=== PATIENT | female | born 1935 | race Caucasian/White ===

== ENCOUNTER 2017-10-15 09:18 | Observation (INO) | payer OTHER ==
[2017-10-15] MEDS: NITROGLYCERIN 2% 1 GM OINT PKT TD (10:11)
[2017-10-15] MEDS: ASPIRIN 81 MG TAB PO (10:11)
[2017-10-15 10:13] LABS: ADD MAN DIFF? NO
[2017-10-15 10:15] LABS: WHITE BLOOD COUNT 7.1 10^3/ul (4.8-10.8)
[2017-10-15 10:15] LABS: BASOPHIL # 0.1 10^3/ul (0.0-0.1); BASOPHILS % 1.4 % (0.0-2.0); EOSINOPHILS # 0.4 10^3/ul (0.0-0.5); EOSINOPHILS % 5.5 % (0.0-7.0); HEMATOCRIT 31.2 % (37.0-47.0); HEMOGLOBIN 9.6 g/dl (12.0-16.0); LYMPHOCYTES # 1.4 10^3/ul (0.8-2.9); LYMPHOCYTES % 19.4 % (15.0-51.0); MEAN CORPUSCULAR HGB CONC 30.8 g/dl (32.0-37.0); MEAN CORPUSCULAR VOLUME 87.6 fl (82.0-101.0); MONOCYTE # 0.6 10^3/ul (0.3-0.9); MONOCYTES % 8.8 % (0.0-11.0); NEUTROPHIL # 4.6 10^3/ul (1.6-7.5); NEUTROPHILS % 64.8 % (39.0-77.0); PLATELET COUNT 340 10^3/UL (140-415); RED BLOOD COUNT 3.56 10^6/ul (4.20-5.40); RED CELL DISTRIBUTION WIDTH 17.6 % (11.5-14.5)
[2017-10-15] MEDS ORDERED: NITROGLYCERIN (SL) 0.4 MG TAB SL (10:30)
[2017-10-15 10:34] LABS: ALANINE AMINOTRANSFERASE 8 IU/L (13-69); ALBUMIN 4.5 g/dl (3.3-4.9); ALBUMIN/GLOBULIN RATIO 1.21; ALKALINE PHOSPHATASE 69 IU/L (42-121); ANION GAP 13 (8-16); ASPARTATE AMINO TRANSFERASE 21 IU/L (15-46); BILIRUBIN,INDIRECT 0.4 mg/dl (0-1.1); BILIRUBIN,TOTAL 0.4 mg/dl (0.2-1.3); BLOOD UREA NITROGEN 19 mg/dl (7-20); CALCIUM 9.8 mg/dl (8.4-10.2); CARBON DIOXIDE 25 mmol/L (21-31); CHLORIDE 107 mmol/L (97-110); GLUCOSE 100 mg/dl (70-220); LIPASE 147 U/L (23-300); SODIUM 141 mmol/L (135-144); TOTAL PROTEIN 8.2 g/dl (6.1-8.1)
[2017-10-15 10:45] LABS: TROPONIN-I < 0.010 ng/ml (0.000-0.120)
[2017-10-15] MEDS ORDERED: ACETAMINOPHEN 325 MG TAB PO (13:00)
[2017-10-15] MEDS ORDERED: ONDANSETRON 4 MG INJ IV (13:00)
[2017-10-15] MEDS: POTASSIUM CHLORIDE (SR) 10 MEQ TAB PO (15:41)
[2017-10-15] MEDS: LOSARTAN 50 MG TAB PO (15:41)
[2017-10-15 16:33] LABS: CREATINE KINASE 75 IU/L (23-200)
[2017-10-15 16:45] LABS: CK INDEX 1.3; CK-MB 0.95 ng/ml (0.0-2.4); TROPONIN-I < 0.010 ng/ml (0.000-0.120)
[2017-10-15] MEDS: PANTOPRAZOLE (EC) 40 MG TAB PO (17:22)
[2017-10-15] MEDS: CILOSTAZOL 100 MG TAB PO (17:23)
[2017-10-15] MEDS: CREON (12k-38k-60k) 1 CAP PO (17:24)
[2017-10-15] MEDS: CLOPIDOGREL 75 MG TAB PO (18:49)
[2017-10-15] MEDS: FERROUS GLUCONATE (EC) 325 MG TAB PO (20:33)
[2017-10-15] MEDS: CARBIDOPA/LEVODOPA (25/100) TAB PO (20:33)
[2017-10-15] MEDS: NORTRIPTYLINE 25 MG CAP PO (20:33)
[2017-10-15] MEDS: ACETAMINOPHEN 500 MG TAB PO (20:33)
[2017-10-15] MEDS: ZOLPIDEM 5 MG TAB PO (21:09)
[2017-10-15 22:40] LABS: CREATINE KINASE 59 IU/L (23-200)
[2017-10-15 22:52] LABS: CK INDEX 1.4; CK-MB 0.81 ng/ml (0.0-2.4); TROPONIN-I < 0.010 ng/ml (0.000-0.120)
[2017-10-16] MEDS: LEVOTHYROXINE 75 MCG TAB PO (05:20)
[2017-10-16] MEDS: PANTOPRAZOLE 40 MG INJ IV ×2 (05:20→10:55)
[2017-10-16 06:08] LABS: ADD MAN DIFF? NO
[2017-10-16 06:15] LABS: BASOPHIL # 0.1 10^3/ul (0.0-0.1); BASOPHILS % 1.2 % (0.0-2.0); EOSINOPHILS # 0.5 10^3/ul (0.0-0.5); EOSINOPHILS % 7.6 % (0.0-7.0); HEMATOCRIT 28.5 % (37.0-47.0); HEMOGLOBIN 8.8 g/dl (12.0-16.0); LYMPHOCYTES # 1.3 10^3/ul (0.8-2.9); LYMPHOCYTES % 21.7 % (15.0-51.0); MEAN CORPUSCULAR HEMOGLOBIN 27.2 pg (29.0-33.0); MEAN CORPUSCULAR HGB CONC 30.9 g/dl (32.0-37.0); MEAN CORPUSCULAR VOLUME 88.2 fl (82.0-101.0); MEAN PLATELET VOLUME 9.6 fl (7.4-10.4); MONOCYTE # 0.5 10^3/ul (0.3-0.9); NEUTROPHIL # 3.6 10^3/ul (1.6-7.5); NEUTROPHILS % 60.2 % (39.0-77.0); PLATELET COUNT 292 10^3/UL (140-415); RED BLOOD COUNT 3.23 10^6/ul (4.20-5.40); RED CELL DISTRIBUTION WIDTH 17.2 % (11.5-14.5)
[2017-10-16 06:15] LABS: WHITE BLOOD COUNT 5.9 10^3/ul (4.8-10.8)
[2017-10-16 06:47] LABS: ALANINE AMINOTRANSFERASE 13 IU/L (13-69); ALBUMIN 3.5 g/dl (3.3-4.9); ALBUMIN/GLOBULIN RATIO 1.16; ALKALINE PHOSPHATASE 52 IU/L (42-121); ANION GAP 8 (8-16); ASPARTATE AMINO TRANSFERASE 19 IU/L (15-46); BILIRUBIN,INDIRECT 0.4 mg/dl (0-1.1); BILIRUBIN,TOTAL 0.4 mg/dl (0.2-1.3); BLOOD UREA NITROGEN 22 mg/dl (7-20); CALCIUM 8.8 mg/dl (8.4-10.2); CARBON DIOXIDE 28 mmol/L (21-31); CHLORIDE 110 mmol/L (97-110); CREATINE KINASE 54 IU/L (23-200); CREATININE 1.03 mg/dl (0.44-1.00); GLUCOSE 89 mg/dl (70-220); MAGNESIUM 1.9 mg/dl (1.7-2.5); POTASSIUM 3.8 mmol/L (3.5-5.1); SODIUM 142 mmol/L (135-144); TOTAL PROTEIN 6.5 g/dl (6.1-8.1)
[2017-10-16 06:59] LABS: CK INDEX 1.6; CK-MB 0.85 ng/ml (0.0-2.4); TROPONIN-I 0.011 ng/ml (0.000-0.120)
[2017-10-16 07:01] LABS: FREE T4 (FREE THYROXINE) 1.26 ng/dl (0.85-1.93)
[2017-10-16 07:16] LABS: THYROID STIMULATING HORMONE 0.996 MIU/L (0.465-4.680)
[2017-10-16] MEDS: CREON (12k-38k-60k) 1 CAP PO ×3 (07:55→17:55)
[2017-10-16] MEDS: CLOPIDOGREL 75 MG TAB PO (08:22)
[2017-10-16] MEDS: FERROUS GLUCONATE (EC) 325 MG TAB PO ×2 (08:22→20:40)
[2017-10-16] MEDS: LOSARTAN 50 MG TAB PO (08:22)
[2017-10-16] MEDS: CARBIDOPA/LEVODOPA (25/100) TAB PO ×3 (08:22→20:41)
[2017-10-16] MEDS: POTASSIUM CHLORIDE (SR) 10 MEQ TAB PO (08:22)
[2017-10-16] MEDS ORDERED: FERROUS SULFATE (EC) 325 MG TAB PO (09:00)
[2017-10-16] MEDS: PROPOFOL 20 ML (18:27)
[2017-10-16] MEDS ORDERED: hydrALAzine 20 MG INJ (18:55)
[2017-10-16] MEDS: hydrALAzine 20 MG INJ IV (19:14)
[2017-10-16] MEDS: NORTRIPTYLINE 25 MG CAP PO (20:40)
[2017-10-16] MEDS: ZOLPIDEM 5 MG TAB PO (21:45)
[2017-10-17] MEDS: LEVOTHYROXINE 75 MCG TAB PO (06:43)
[2017-10-17] MEDS: CLOPIDOGREL 75 MG TAB PO (08:46)
[2017-10-17] MEDS: POTASSIUM CHLORIDE (SR) 10 MEQ TAB PO (08:46)
[2017-10-17] MEDS: CREON (12k-38k-60k) 1 CAP PO ×2 (08:46→12:06)
[2017-10-17] MEDS: LOSARTAN 50 MG TAB PO (08:47)
[2017-10-17] MEDS: FERROUS GLUCONATE (EC) 325 MG TAB PO (08:47)
[2017-10-17] MEDS: CARBIDOPA/LEVODOPA (25/100) TAB PO ×2 (08:47→12:06)
[2017-10-17] MEDS: CHLORTHALIDONE 25 MG TAB PO (15:30)
== END 2017-10-17 17:23 | disposition home or self-care (01) ==
LOC: E/R 09:18 → TEL 12:37
DX: K44.9 Diaphragmatic hernia without obstruction or gangrene (principal); K25.9 Gastric ulcer, unspecified as acute or chronic, without hemorrhage or perforation; K31.7 Polyp of stomach and duodenum; K29.50 Unspecified chronic gastritis without bleeding; K42.9 Umbilical hernia without obstruction or gangrene; E03.9 Hypothyroidism, unspecified; D50.9 Iron deficiency anemia, unspecified; I34.0 Nonrheumatic mitral (valve) insufficiency; I10 Essential (primary) hypertension; G20 Parkinson's disease; Z85.3 Personal history of malignant neoplasm of breast; Z82.49 Family history of ischemic heart disease and other diseases of the circulatory system
CPT/HCPCS: 36415; 71045; 74018; 74176; 80053; 82550; 82553; 83690; 83735; 84439; 84443; 84484; 85025; 88305; 88312; 93005; 93306; 99217; 99285-25; G0378

== ENCOUNTER 2018-01-11 19:16 | Emergency (ER) | payer OTHER ==
[2018-01-11] MEDS: HYDROCODONE/APAP (5/325) TAB PO (20:21)
== END 2018-01-11 22:50 | disposition home or self-care (01) ==
LOC: E/R 19:16
DX: M54.31 Sciatica, right side (principal); G20 Parkinson's disease; I10 Essential (primary) hypertension; Z79.01 Long term (current) use of anticoagulants
CPT/HCPCS: 99283

== ENCOUNTER 2018-09-16 09:52 | Day surgery (SDC) | payer OTHER ==
[~2018-09-16 09:52] MED LIST: SOD CHLORIDE 0.9% 1,000 ML IV
[2018-09-16 11:13] LABS: ADD MAN DIFF? NO
[2018-09-16 11:15] LABS: WHITE BLOOD COUNT 9.7 10^3/ul (4.8-10.8)
[2018-09-16 11:15] LABS: BASOPHIL # 0.1 10^3/ul (0.0-0.1); BASOPHILS % 0.8 % (0.0-2.0); EOSINOPHILS # 0.2 10^3/ul (0.0-0.5); EOSINOPHILS % 1.6 % (0.0-7.0); HEMATOCRIT 26.5 % (37.0-47.0); HEMOGLOBIN 7.7 g/dl (12.0-16.0); LYMPHOCYTES # 0.6 10^3/ul (0.8-2.9); LYMPHOCYTES % 6.4 % (15.0-51.0); MEAN CORPUSCULAR HEMOGLOBIN 24.4 pg (29.0-33.0); MEAN CORPUSCULAR HGB CONC 29.1 g/dl (32.0-37.0); MEAN CORPUSCULAR VOLUME 83.9 fl (82.0-101.0); MEAN PLATELET VOLUME 9.1 fl (7.4-10.4); MONOCYTE # 0.6 10^3/ul (0.3-0.9); MONOCYTES % 6.2 % (0.0-11.0); NEUTROPHIL # 8.2 10^3/ul (1.6-7.5); NEUTROPHILS % 84.6 % (39.0-77.0); PLATELET COUNT 408 10^3/UL (140-415); RED BLOOD COUNT 3.16 10^6/ul (4.20-5.40); RED CELL DISTRIBUTION WIDTH 16.6 % (11.5-14.5)
[2018-09-16 11:34] LABS: HOLD TRANSMISSIONS 1; INR 0.99; PARTIAL THROMBOPLASTIN TIME 26.5 Sec (23.0-35.0); PROTIME 13.2 Sec (11.9-14.9)
[2018-09-16 11:42] LABS: ANION GAP 10 (5-13); CALCIUM 9.4 mg/dl (8.4-10.2); CARBON DIOXIDE 26 mmol/L (21-31); CHLORIDE 107 mmol/L (97-110); GLUCOSE 107 mg/dl (70-220); POTASSIUM 4.6 mmol/L (3.5-5.1); SODIUM 143 mmol/L (135-144)
[2018-09-16 11:56] LABS: ADD UMIC YES; UR ASCORBIC ACID NEGATIVE (NEGATIVE); UR BACTERIA FEW /HPF (NONE SEEN); UR BILIRUBIN (Dip) NEGATIVE (NEGATIVE); UR BLOOD (Dip) NEGATIVE (NEGATIVE); UR CLARITY SLIGHTLY CLOUDY (CLEAR); UR COLOR YELLOW (YELLOW); UR GLUCOSE (Dip) NEGATIVE (NEGATIVE); UR KETONES (Dip) TRACE mg/dL (NEGATIVE); UR LEUKOCYTE ESTERASE (Dip) 2+ Leu/ul (NEGATIVE); UR MUCUS FEW /HPF (NONE SEEN); UR NITRITE (Dip) NEGATIVE (NEGATIVE); UR RBC 1 /HPF (0-5); UR SPECIFIC GRAVITY (Dip) 1.019 (1.003-1.030); UR TOTAL PROTEIN (Dip) NEGATIVE (NEGATIVE); UR UROBILINOGEN (Dip) NEGATIVE (NEGATIVE); UR WBC 24 /HPF (0-5)
[2018-09-16 12:02] LABS: BLOOD UREA NITROGEN 27 mg/dl (7-20); CREATININE 1.25 mg/dl (0.44-1.00)
[2018-09-16] MEDS ORDERED: MIDAZOLAM 1 MG/ML 2 ML INJ (12:12)
[2018-09-16] MEDS ORDERED: FENTAnyl 50 MCG/ML VIAL (12:12)
[2018-09-16] MEDS ORDERED: LIDOCAINE 1% (MDV) 20 ML INJ (12:12)
[2018-09-16] MEDS ORDERED: HEPARIN 1000 UNITS/NS (A-LINE) 1,000 ML (12:12)
== END 2018-09-16 17:35 | disposition home or self-care (01) ==
LOC: SDS 09:52
DX: L98.499 Non-pressure chronic ulcer of skin of other sites with unspecified severity (principal)
CPT/HCPCS: 36246; 71045; 75630; 80048; 81001; 85025; 85610; 85730; 93005

== ENCOUNTER 2018-10-09 06:14 | Inpatient (IN) | payer OTHER ==
[2018-10-09] MEDS ORDERED: THROMBIN 5000 UNIT (RECOTHROM) VIAL (07:26)
[2018-10-09] MEDS ORDERED: HEPARIN 1000 UNITS/ML 10 ML INJ (07:26)
[2018-10-09] MEDS: CITRIC ACID/NA CITRATE 30 ML CUP PO (07:34)
[2018-10-09] MEDS: LACTATED RINGER'S 1,000 ML IV (07:35)
[2018-10-09] MEDS: HEPARIN 1000 UNITS/ML 10 ML INJ IRR (07:45)
[2018-10-09] MEDS ORDERED: hydrALAzine 20 MG INJ IV (08:30)
[2018-10-09] MEDS ORDERED: HYDROmorphONE 1 MG/5 ML IV SYRINGE IV (08:30)
[2018-10-09] MEDS: CEFAZOLIN 2 GM/50 ML (PMX) 50 ML IVPB (09:00)
[2018-10-09] MEDS ORDERED: BACITRACIN/POLYMYXIN 28.35 GM OINT TOP (09:09)
[2018-10-09] MEDS: BACITRACIN/POLYMYXIN 0.9 GM OINT TOP (09:10)
[2018-10-09] MEDS: GELATIN SIZE 100 SPONGE ×2 (11:25)
[2018-10-09] MEDS: THROMBIN 5000 UNIT (RECOTHROM) VIAL TOP (11:25)
[2018-10-09] MEDS: LABETALOL HCL 20MG INJ IV (13:36)
[2018-10-09] MEDS: ONDANSETRON 4 MG INJ IV (15:05)
[2018-10-09] MEDS: HYDROmorphONE 1 MG/5 ML IV SYRINGE IV ×2 (15:06→17:32)
[2018-10-09] MEDS: niCARdipine 50 MG in SOD CHLORIDE 0.9% 480 ML IV (15:21)
[2018-10-09] MEDS ORDERED: BISACODYL (EC) 5 MG TAB PO (16:00)
[2018-10-09] MEDS ORDERED: DIPHENHYDRAMINE 25 MG CAP PO (16:00)
[2018-10-09] MEDS: LEVOTHYROXINE 50 MCG TAB PO (16:02)
[2018-10-09] MEDS: PANTOPRAZOLE (EC) 40 MG TAB PO (18:11)
[2018-10-09] MEDS: DEXTROSE 5%-0.45% NACL 1,000 ML IV (20:39)
[2018-10-09] MEDS: CARBIDOPA/LEVODOPA (25/100) TAB PO (20:51)
[2018-10-09] MEDS: GABAPENTIN 300 MG CAP PO (20:51)
[2018-10-09] MEDS: FERROUS SULFATE (EC) 325 MG TAB PO (20:51)
[2018-10-09] MEDS: MUPIROCIN 2% 22 GM OINT TOP (21:00)
[2018-10-09] MEDS: morphine 2 MG INJ IV (21:30)
[2018-10-10 05:01] LABS: ADD MAN DIFF? NO
[2018-10-10 05:10] LABS: WHITE BLOOD COUNT 7.9 10^3/ul (4.8-10.8)
[2018-10-10 05:10] LABS: ABNORMAL IP MESSAGE 1; BASOPHIL # 0.1 10^3/ul (0.0-0.1); BASOPHILS % 0.6 % (0.0-2.0); EOSINOPHILS # 0.2 10^3/ul (0.0-0.5); HEMATOCRIT 21.7 % (37.0-47.0); LYMPHOCYTES # 0.7 10^3/ul (0.8-2.9); LYMPHOCYTES % 9.3 % (15.0-51.0); MEAN CORPUSCULAR HEMOGLOBIN 24.2 pg (29.0-33.0); MEAN CORPUSCULAR VOLUME 83.5 fl (82.0-101.0); MEAN PLATELET VOLUME 10.2 fl (7.4-10.4); MONOCYTES % 12.2 % (0.0-11.0); NEUTROPHIL # 5.9 10^3/ul (1.6-7.5); NEUTROPHILS % 75.5 % (39.0-77.0); PLATELET COUNT 302 10^3/UL (140-415); RED CELL DISTRIBUTION WIDTH 16.9 % (11.5-14.5)
[2018-10-10 05:13] LABS: PATH REVIEW? YES; POSITIVE DIFF @See below
[2018-10-10 05:14] LABS: HEMOGLOBIN 6.3 g/dl (12.0-16.0)
[2018-10-10 05:49] LABS: BLOOD UREA NITROGEN 20 mg/dl (7-20); CALCIUM 8.8 mg/dl (8.4-10.2); CARBON DIOXIDE 28 mmol/L (21-31); CHLORIDE 104 mmol/L (97-110); CREATININE 0.92 mg/dl (0.44-1.00); GLUCOSE 151 mg/dl (70-220); MAGNESIUM 1.9 mg/dl (1.7-2.5); POTASSIUM 4.3 mmol/L (3.5-5.1)
[2018-10-10] MEDS: LEVOTHYROXINE 50 MCG TAB PO (06:01)
[2018-10-10] MEDS: PANTOPRAZOLE (EC) 40 MG TAB PO ×2 (06:01→17:01)
[2018-10-10] MEDS: DEXTROSE 5%-0.45% NACL 1,000 ML IV ×2 (06:05→18:00)
[2018-10-10 06:27] LABS: ANION GAP 8 (5-13); SODIUM 140 mmol/L (135-144)
[2018-10-10 06:57] LABS: ADD MAN DIFF? NO
[2018-10-10 07:06] LABS: WHITE BLOOD COUNT 8.5 10^3/ul (4.8-10.8)
[2018-10-10 07:06] LABS: ABNORMAL IP MESSAGE 1; BASOPHILS % 0.5 % (0.0-2.0); EOSINOPHILS # 0.1 10^3/ul (0.0-0.5); EOSINOPHILS % 1.2 % (0.0-7.0); HEMATOCRIT 20.8 % (37.0-47.0); LYMPHOCYTES # 0.7 10^3/ul (0.8-2.9); LYMPHOCYTES % 7.7 % (15.0-51.0); MEAN CORPUSCULAR HGB CONC 28.8 g/dl (32.0-37.0); MEAN CORPUSCULAR VOLUME 83.2 fl (82.0-101.0); MEAN PLATELET VOLUME 9.8 fl (7.4-10.4); MONOCYTE # 1.1 10^3/ul (0.3-0.9); NEUTROPHIL # 6.6 10^3/ul (1.6-7.5); NEUTROPHILS % 77.2 % (39.0-77.0); PLATELET COUNT 286 10^3/UL (140-415); RED CELL DISTRIBUTION WIDTH 17.1 % (11.5-14.5)
[2018-10-10 07:22] LABS: POSITIVE DIFF @See below
[2018-10-10] MEDS: MUPIROCIN 2% 22 GM OINT TOP ×2 (08:57→21:00)
[2018-10-10] MEDS: FERROUS SULFATE (EC) 325 MG TAB PO ×4 (08:57→20:50)
[2018-10-10] MEDS: CARBIDOPA/LEVODOPA (25/100) TAB PO ×3 (08:57→20:50)
[2018-10-10] MEDS: morphine 2 MG INJ IV ×6 (08:59→21:13)
[2018-10-10] MEDS: LACTATED RINGER'S 1,000 ML IV (09:05)
[2018-10-10] MEDS: ASPIRIN 325 MG TAB PO (09:23)
[2018-10-10 09:42] LABS: ANISOCYTOSIS 1+ (0-0); BAND NEUTROPHILS #M 0.7 10^3/ul (0.0-0.6); BAND NEUTROPHILS % (M) 10 % (0-4); BURR CELLS 1+ (0-0); GIANT THROMBO% (M) 2 % (0-0); LYMPHOCYTES #M 0.2 10^3/ul (0.8-2.9); LYMPHOCYTES % (M) 3 % (15-51); MONOCYTES % (M) 1 % (0-11); PLATELET ESTIMATE NORMAL; POIKILOCYTOSIS 1+ (0-0); REACTIVE LYMPHOCYTES% (M) 1 % (0-0); SEG NEUT #M 6.8 10^3/ul (1.6-7.5); SEGMENTED NEUTROPHILS (M) % 85 % (39-77); SMUDGE%M 4 % (0-0)
[2018-10-10 10:45] LABS: IMMEDIATE SPIN CROSSMATCH 1 3
[2018-10-10 14:13] LABS: ADD MAN DIFF? NO
[2018-10-10 14:15] LABS: BASOPHIL # 0.1 10^3/ul (0.0-0.1); BASOPHILS % 0.5 % (0.0-2.0); EOSINOPHILS # 0.1 10^3/ul (0.0-0.5); HEMATOCRIT 28.2 % (37.0-47.0); HEMOGLOBIN 8.5 g/dl (12.0-16.0); LYMPHOCYTES # 0.8 10^3/ul (0.8-2.9); LYMPHOCYTES % 9.2 % (15.0-51.0); MEAN CORPUSCULAR HEMOGLOBIN 25.5 pg (29.0-33.0); MEAN CORPUSCULAR HGB CONC 30.1 g/dl (32.0-37.0); MEAN CORPUSCULAR VOLUME 84.7 fl (82.0-101.0); MEAN PLATELET VOLUME 9.3 fl (7.4-10.4); MONOCYTE # 1.1 10^3/ul (0.3-0.9); MONOCYTES % 11.8 % (0.0-11.0); NEUTROPHIL # 7.1 10^3/ul (1.6-7.5); NEUTROPHILS % 77.2 % (39.0-77.0); PLATELET COUNT 236 10^3/UL (140-415); RED BLOOD COUNT 3.33 10^6/ul (4.20-5.40); RED CELL DISTRIBUTION WIDTH 16.2 % (11.5-14.5)
[2018-10-10 14:15] LABS: WHITE BLOOD COUNT 9.1 10^3/ul (4.8-10.8)
[2018-10-10] MEDS: CLOPIDOGREL 75 MG TAB PO (15:15)
[2018-10-10] MEDS: FUROSEMIDE 20 MG TAB PO (15:24)
[2018-10-10] MEDS: GABAPENTIN 100 MG CAP PO (15:24)
[2018-10-10] MEDS: BENAZEPRIL 40 MG TAB PO (17:02)
[2018-10-10] MEDS: GABAPENTIN 300 MG CAP PO (20:50)
[2018-10-11] MEDS: DEXTROSE 5%-0.45% NACL 1,000 ML IV ×2 (00:27→15:39)
[2018-10-11] MEDS: LACTATED RINGER'S 1,000 ML IV (00:27)
[2018-10-11] MEDS: morphine 2 MG INJ IV ×2 (00:42→18:04)
[2018-10-11] MEDS: PANTOPRAZOLE (EC) 40 MG TAB PO ×2 (05:43→17:42)
[2018-10-11] MEDS: LEVOTHYROXINE 50 MCG TAB PO (05:43)
[2018-10-11 05:56] LABS: ADD MAN DIFF? NO
[2018-10-11 06:04] LABS: WHITE BLOOD COUNT 12.2 10^3/ul (4.8-10.8)
[2018-10-11 06:04] LABS: BASOPHILS % 0.3 % (0.0-2.0); EOSINOPHILS # 0.2 10^3/ul (0.0-0.5); EOSINOPHILS % 1.6 % (0.0-7.0); HEMATOCRIT 27.9 % (37.0-47.0); HEMOGLOBIN 8.4 g/dl (12.0-16.0); LYMPHOCYTES # 0.9 10^3/ul (0.8-2.9); LYMPHOCYTES % 7.4 % (15.0-51.0); MEAN CORPUSCULAR HEMOGLOBIN 25.3 pg (29.0-33.0); MEAN CORPUSCULAR HGB CONC 30.1 g/dl (32.0-37.0); MEAN PLATELET VOLUME 9.8 fl (7.4-10.4); MONOCYTE # 1.2 10^3/ul (0.3-0.9); MONOCYTES % 10.1 % (0.0-11.0); NEUTROPHIL # 9.8 10^3/ul (1.6-7.5); NEUTROPHILS % 80.3 % (39.0-77.0); PLATELET COUNT 224 10^3/UL (140-415); RED BLOOD COUNT 3.32 10^6/ul (4.20-5.40); RED CELL DISTRIBUTION WIDTH 16.5 % (11.5-14.5)
[2018-10-11 06:30] LABS: ANION GAP 6 (5-13); BLOOD UREA NITROGEN 13 mg/dl (7-20); CALCIUM 8.7 mg/dl (8.4-10.2); CARBON DIOXIDE 27 mmol/L (21-31); CHLORIDE 101 mmol/L (97-110); CREATININE 0.93 mg/dl (0.44-1.00); GLUCOSE 123 mg/dl (70-220); SODIUM 134 mmol/L (135-144)
[2018-10-11 06:32] LABS: IRON 11 ug/dl (35-150)
[2018-10-11 06:41] LABS: % IRON SATURATION 3 % SAT (22-52); TOTAL IRON BINDING CAPACITY 322 ug/dl (241-421)
[2018-10-11] MEDS: ASPIRIN (EC) 81 MG TAB PO (08:51)
[2018-10-11] MEDS: CARBIDOPA/LEVODOPA (25/100) TAB PO ×3 (08:51→20:16)
[2018-10-11] MEDS: FERROUS SULFATE (EC) 325 MG TAB PO ×3 (08:51→20:16)
[2018-10-11] MEDS: MUPIROCIN 2% 22 GM OINT TOP ×3 (08:52→20:21)
[2018-10-11] MEDS: FUROSEMIDE 20 MG TAB PO (08:52)
[2018-10-11] MEDS: CLOPIDOGREL 75 MG TAB PO (08:52)
[2018-10-11] MEDS: GABAPENTIN 100 MG CAP PO (08:52)
[2018-10-11] MEDS: BENAZEPRIL 40 MG TAB PO (08:52)
[2018-10-11] MEDS ORDERED: morphine 4 MG/ML VIAL IV (11:00)
[2018-10-11] MEDS: GABAPENTIN 300 MG CAP PO (20:16)
[2018-10-12] MEDS: DEXTROSE 5%-0.45% NACL 1,000 ML IV (03:48)
[2018-10-12] MEDS: LEVOTHYROXINE 50 MCG TAB PO (05:34)
[2018-10-12] MEDS: PANTOPRAZOLE (EC) 40 MG TAB PO ×2 (05:34→17:18)
[2018-10-12] MEDS: morphine 2 MG INJ IV ×2 (05:37→07:25)
[2018-10-12] MEDS: CLOPIDOGREL 75 MG TAB PO (08:17)
[2018-10-12] MEDS: ASPIRIN (EC) 81 MG TAB PO (08:17)
[2018-10-12] MEDS: GABAPENTIN 100 MG CAP PO (08:17)
[2018-10-12] MEDS: FUROSEMIDE 20 MG TAB PO (08:17)
[2018-10-12] MEDS: CARBIDOPA/LEVODOPA (25/100) TAB PO ×3 (08:17→20:48)
[2018-10-12] MEDS: FERROUS SULFATE (EC) 325 MG TAB PO ×3 (08:17→20:58)
[2018-10-12] MEDS: MUPIROCIN 2% 22 GM OINT TOP ×2 (08:18→20:59)
[2018-10-12] MEDS: BENAZEPRIL 40 MG TAB PO (08:18)
[2018-10-12] MEDS: HYDROCODONE/APAP (5/325) TAB PO ×2 (09:39→20:59)
[2018-10-12] MEDS: DEXTROSE 5%-0.9% NACL 1,000 ML IV (15:10)
[2018-10-12] MEDS: FUROSEMIDE 20 MG INJ IV (15:10)
[2018-10-12] MEDS: ESCITALOPRAM 10 MG TAB PO (16:30)
[2018-10-12] MEDS: METOCLOPRAMIDE 10 MG INJ IV (17:17)
[2018-10-12 19:17] LABS: ADD UMIC YES; UR ASCORBIC ACID NEGATIVE (NEGATIVE); UR BILIRUBIN (Dip) NEGATIVE (NEGATIVE); UR BLOOD (Dip) 1+ mg/dL (NEGATIVE); UR CLARITY CLEAR (CLEAR); UR COLOR STRAW (YELLOW); UR GLUCOSE (Dip) NEGATIVE (NEGATIVE); UR KETONES (Dip) NEGATIVE (NEGATIVE); UR LEUKOCYTE ESTERASE (Dip) NEGATIVE Leu/ul (NEGATIVE); UR NITRITE (Dip) NEGATIVE (NEGATIVE); UR RBC 1 /HPF (0-5); UR SPECIFIC GRAVITY (Dip) 1.005 (1.003-1.030); UR TOTAL PROTEIN (Dip) NEGATIVE (NEGATIVE); UR UROBILINOGEN (Dip) NEGATIVE (NEGATIVE); UR WBC 1 /HPF (0-5)
[2018-10-12] MEDS: GABAPENTIN 300 MG CAP PO (20:58)
[2018-10-13 05:30] LABS: ADD MAN DIFF? NO
[2018-10-13 05:37] LABS: WHITE BLOOD COUNT 9.8 10^3/ul (4.8-10.8)
[2018-10-13 05:37] LABS: BASOPHILS % 0.4 % (0.0-2.0); EOSINOPHILS # 0.5 10^3/ul (0.0-0.5); EOSINOPHILS % 5.3 % (0.0-7.0); HEMATOCRIT 28.5 % (37.0-47.0); HEMOGLOBIN 8.5 g/dl (12.0-16.0); LYMPHOCYTES # 1.1 10^3/ul (0.8-2.9); LYMPHOCYTES % 11.3 % (15.0-51.0); MEAN CORPUSCULAR HEMOGLOBIN 25.8 pg (29.0-33.0); MEAN CORPUSCULAR HGB CONC 29.8 g/dl (32.0-37.0); MEAN CORPUSCULAR VOLUME 86.6 fl (82.0-101.0); MEAN PLATELET VOLUME 9.5 fl (7.4-10.4); MONOCYTE # 1.1 10^3/ul (0.3-0.9); MONOCYTES % 11.3 % (0.0-11.0); NEUTROPHILS % 71.2 % (39.0-77.0); PLATELET COUNT 236 10^3/UL (140-415); RED BLOOD COUNT 3.29 10^6/ul (4.20-5.40)
[2018-10-13] MEDS: PANTOPRAZOLE (EC) 40 MG TAB PO ×2 (05:37→18:11)
[2018-10-13] MEDS: LEVOTHYROXINE 50 MCG TAB PO (05:37)
[2018-10-13] MEDS: HYDROCODONE/APAP (5/325) TAB PO ×3 (05:37→14:08)
[2018-10-13 06:12] LABS: ALANINE AMINOTRANSFERASE 12 IU/L (13-69); ALBUMIN 2.7 g/dl (3.3-4.9); ALBUMIN/GLOBULIN RATIO 0.93; ALKALINE PHOSPHATASE 55 IU/L (42-121); ANION GAP 4 (5-13); ASPARTATE AMINO TRANSFERASE 16 IU/L (15-46); BILIRUBIN,INDIRECT 0.3 mg/dl (0-1.1); BILIRUBIN,TOTAL 0.3 mg/dl (0.2-1.3); BLOOD UREA NITROGEN 16 mg/dl (7-20); CALCIUM 8.6 mg/dl (8.4-10.2); CARBON DIOXIDE 29 mmol/L (21-31); CHLORIDE 104 mmol/L (97-110); CREATININE 0.99 mg/dl (0.44-1.00); GLUCOSE 118 mg/dl (70-220); POTASSIUM 3.8 mmol/L (3.5-5.1); SODIUM 137 mmol/L (135-144); TOTAL PROTEIN 5.6 g/dl (6.1-8.1)
[2018-10-13] MEDS: METOCLOPRAMIDE 10 MG INJ IV ×3 (07:30→17:15)
[2018-10-13] MEDS: ESCITALOPRAM 10 MG TAB PO (09:00)
[2018-10-13] MEDS: GABAPENTIN 100 MG CAP PO (09:12)
[2018-10-13] MEDS: ASPIRIN (EC) 81 MG TAB PO (09:12)
[2018-10-13] MEDS: CARBIDOPA/LEVODOPA (25/100) TAB PO ×3 (09:12→20:42)
[2018-10-13] MEDS: CLOPIDOGREL 75 MG TAB PO (09:12)
[2018-10-13] MEDS: FERROUS SULFATE (EC) 325 MG TAB PO ×3 (09:12→20:41)
[2018-10-13] MEDS: FUROSEMIDE 20 MG INJ IV (09:13)
[2018-10-13] MEDS: BENAZEPRIL 40 MG TAB PO (09:13)
[2018-10-13] MEDS: MUPIROCIN 2% 22 GM OINT TOP ×2 (09:21→20:42)
[2018-10-13] MEDS: DEXTROSE 5%-0.9% NACL 1,000 ML IV (10:41)
[2018-10-13] MEDS: DOCUSATE SODIUM 100 MG CAP PO (18:11)
[2018-10-13] MEDS: traMADol 50 MG TAB PO ×2 (18:11→23:54)
[2018-10-13] MEDS: GABAPENTIN 300 MG CAP PO (20:42)
[2018-10-13] MEDS ORDERED: DOCUSATE SODIUM 100 MG CAP PO (21:00)
[2018-10-13] MEDS: ACETAMINOPHEN 325 MG TAB PO (21:57)
[2018-10-14] MEDS: PANTOPRAZOLE (EC) 40 MG TAB PO ×2 (05:35→17:05)
[2018-10-14] MEDS: LEVOTHYROXINE 50 MCG TAB PO (05:35)
[2018-10-14] MEDS: DEXTROSE 5%-0.9% NACL 1,000 ML IV (06:25)
[2018-10-14] MEDS: traMADol 50 MG TAB PO ×2 (06:32→14:26)
[2018-10-14] MEDS: METOCLOPRAMIDE 10 MG INJ IV ×2 (07:30→11:30)
[2018-10-14] MEDS: GABAPENTIN 100 MG CAP PO ×3 (08:48→21:00)
[2018-10-14] MEDS: CARBIDOPA/LEVODOPA (25/100) TAB PO ×3 (08:48→21:02)
[2018-10-14] MEDS: FUROSEMIDE 20 MG INJ IV (08:49)
[2018-10-14] MEDS: CLOPIDOGREL 75 MG TAB PO (08:49)
[2018-10-14] MEDS: FERROUS SULFATE (EC) 325 MG TAB PO ×3 (08:49→21:02)
[2018-10-14] MEDS: DOCUSATE SODIUM 100 MG CAP PO ×2 (08:50→21:02)
[2018-10-14] MEDS: BENAZEPRIL 40 MG TAB PO (08:50)
[2018-10-14] MEDS: ASPIRIN (EC) 81 MG TAB PO (08:50)
[2018-10-14] MEDS: ESCITALOPRAM 10 MG TAB PO (09:00)
[2018-10-14] MEDS: MUPIROCIN 2% 22 GM OINT TOP ×2 (09:00→21:03)
[2018-10-14] MEDS: IOHEXOL 300MG/ML 150 ML BTL (10:19)
[2018-10-14] MEDS: SOD CHLORIDE 0.9% 100 ML (10:19)
[2018-10-14] MEDS: HYDROCODONE/APAP (5/325) TAB PO (11:11)
[2018-10-14] MEDS: NA PHOSPHATE/BIPHOS 133 ML ENEMA PR (18:15)
[2018-10-14 18:36] LABS: IMMEDIATE SPIN CROSSMATCH 1 1
[2018-10-14] MEDS: GABAPENTIN 300 MG CAP PO (21:03)
[2018-10-15] MEDS: traMADol 50 MG TAB PO ×3 (01:15→18:54)
[2018-10-15 05:16] LABS: HEMATOCRIT 29.9 % (37.0-47.0); HEMOGLOBIN 9.2 g/dl (12.0-16.0)
[2018-10-15 05:43] LABS: ANION GAP 5 (5-13); BLOOD UREA NITROGEN 22 mg/dl (7-20); CALCIUM 9.1 mg/dl (8.4-10.2); CARBON DIOXIDE 29 mmol/L (21-31); CHLORIDE 104 mmol/L (97-110); CREATININE 1.02 mg/dl (0.44-1.00); GLUCOSE 105 mg/dl (70-220); POTASSIUM 3.8 mmol/L (3.5-5.1); SODIUM 138 mmol/L (135-144)
[2018-10-15] MEDS: PANTOPRAZOLE (EC) 40 MG TAB PO ×2 (05:47→17:34)
[2018-10-15] MEDS: LEVOTHYROXINE 50 MCG TAB PO (05:47)
[2018-10-15] MEDS: BENAZEPRIL 40 MG TAB PO (08:58)
[2018-10-15] MEDS: ASPIRIN (EC) 81 MG TAB PO (08:58)
[2018-10-15] MEDS: FERROUS SULFATE (EC) 325 MG TAB PO ×3 (08:58→20:46)
[2018-10-15] MEDS: CLOPIDOGREL 75 MG TAB PO (08:59)
[2018-10-15] MEDS: GABAPENTIN 100 MG CAP PO ×2 (08:59→21:00)
[2018-10-15] MEDS: DOCUSATE SODIUM 100 MG CAP PO ×2 (08:59→20:46)
[2018-10-15] MEDS: CARBIDOPA/LEVODOPA (25/100) TAB PO ×3 (08:59→20:46)
[2018-10-15] MEDS: FUROSEMIDE 20 MG INJ IV (09:00)
[2018-10-15] MEDS: MUPIROCIN 2% 22 GM OINT TOP ×2 (09:02→20:54)
[2018-10-15] MEDS: ACETAMINOPHEN 325 MG TAB PO (13:09)
[2018-10-15] MEDS: DIPHENHYDRAMINE 25 MG CAP PO (20:46)
[2018-10-15] MEDS: GABAPENTIN 300 MG CAP PO (20:54)
[2018-10-16] MEDS: PANTOPRAZOLE (EC) 40 MG TAB PO ×2 (05:51→18:04)
[2018-10-16] MEDS: LEVOTHYROXINE 50 MCG TAB PO (05:51)
[2018-10-16 06:28] LABS: B-TYPE NATRIURETIC PEPTIDE 632 PG/ML (0-450)
[2018-10-16] MEDS: DOCUSATE SODIUM 100 MG CAP PO ×2 (08:23→20:21)
[2018-10-16] MEDS: FERROUS SULFATE (EC) 325 MG TAB PO ×3 (08:23→20:22)
[2018-10-16] MEDS: CLOPIDOGREL 75 MG TAB PO (08:23)
[2018-10-16] MEDS: BENAZEPRIL 40 MG TAB PO (08:23)
[2018-10-16] MEDS: ASPIRIN (EC) 81 MG TAB PO (08:24)
[2018-10-16] MEDS: CARBIDOPA/LEVODOPA (25/100) TAB PO ×3 (08:24→20:22)
[2018-10-16] MEDS: GABAPENTIN 100 MG CAP PO ×3 (08:24→20:21)
[2018-10-16] MEDS: FUROSEMIDE 20 MG INJ IV (08:25)
[2018-10-16] MEDS: MUPIROCIN 2% 22 GM OINT TOP ×2 (08:26→20:22)
[2018-10-16] MEDS: traMADol 50 MG TAB PO (09:23)
[2018-10-16] MEDS: ACETAMINOPHEN 325 MG TAB PO (11:12)
[2018-10-16] MEDS: DIPHENHYDRAMINE 25 MG CAP PO (20:21)
[2018-10-16] MEDS: GABAPENTIN 300 MG CAP PO (20:22)
[2018-10-17 05:13] LABS: ADD MAN DIFF? NO
[2018-10-17] MEDS: PANTOPRAZOLE (EC) 40 MG TAB PO ×2 (05:16→18:19)
[2018-10-17] MEDS: LEVOTHYROXINE 50 MCG TAB PO (05:16)
[2018-10-17 05:26] LABS: BASOPHIL # 0.1 10^3/ul (0.0-0.1); BASOPHILS % 0.6 % (0.0-2.0); EOSINOPHILS # 0.6 10^3/ul (0.0-0.5); EOSINOPHILS % 6.6 % (0.0-7.0); HEMATOCRIT 29.2 % (37.0-47.0); LYMPHOCYTES % 12.4 % (15.0-51.0); MEAN CORPUSCULAR HEMOGLOBIN 25.9 pg (29.0-33.0); MEAN CORPUSCULAR HGB CONC 30.8 g/dl (32.0-37.0); MEAN CORPUSCULAR VOLUME 83.9 fl (82.0-101.0); MEAN PLATELET VOLUME 8.8 fl (7.4-10.4); MONOCYTE # 0.7 10^3/ul (0.3-0.9); MONOCYTES % 8.5 % (0.0-11.0); NEUTROPHIL # 5.9 10^3/ul (1.6-7.5); NEUTROPHILS % 70.9 % (39.0-77.0); PLATELET COUNT 332 10^3/UL (140-415); RED BLOOD COUNT 3.48 10^6/ul (4.20-5.40); RED CELL DISTRIBUTION WIDTH 16.6 % (11.5-14.5)
[2018-10-17 05:26] LABS: WHITE BLOOD COUNT 8.4 10^3/ul (4.8-10.8)
[2018-10-17 05:57] LABS: B-TYPE NATRIURETIC PEPTIDE 610 PG/ML (0-450)
[2018-10-17 06:11] LABS: ANION GAP 5 (5-13); BLOOD UREA NITROGEN 25 mg/dl (7-20); CARBON DIOXIDE 32 mmol/L (21-31); CHLORIDE 100 mmol/L (97-110); CREATININE 0.98 mg/dl (0.44-1.00); GLUCOSE 106 mg/dl (70-220); MAGNESIUM 1.7 mg/dl (1.7-2.5); POTASSIUM 3.7 mmol/L (3.5-5.1); SODIUM 137 mmol/L (135-144)
[2018-10-17] MEDS: CARBIDOPA/LEVODOPA (25/100) TAB PO ×3 (08:42→20:31)
[2018-10-17] MEDS: DOCUSATE SODIUM 100 MG CAP PO ×2 (08:42→21:12)
[2018-10-17] MEDS: FUROSEMIDE 40 MG INJ IV (08:42)
[2018-10-17] MEDS: CLOPIDOGREL 75 MG TAB PO (08:42)
[2018-10-17] MEDS: GABAPENTIN 100 MG CAP PO ×3 (08:42→20:28)
[2018-10-17] MEDS: ASPIRIN (EC) 81 MG TAB PO (08:43)
[2018-10-17] MEDS: FERROUS SULFATE (EC) 325 MG TAB PO ×3 (08:43→21:12)
[2018-10-17] MEDS: BENAZEPRIL 40 MG TAB PO (08:43)
[2018-10-17] MEDS: MUPIROCIN 2% 22 GM OINT TOP ×2 (08:43→20:33)
[2018-10-17] MEDS: traMADol 50 MG TAB PO (11:04)
[2018-10-17] MEDS: GABAPENTIN 300 MG CAP PO (20:28)
[2018-10-17] MEDS: DIPHENHYDRAMINE 25 MG CAP PO (20:31)
[2018-10-18] MEDS: PANTOPRAZOLE (EC) 40 MG TAB PO ×2 (05:21→17:19)
[2018-10-18] MEDS: LEVOTHYROXINE 50 MCG TAB PO (05:21)
[2018-10-18 06:05] LABS: ADD MAN DIFF? NO
[2018-10-18 06:08] LABS: WHITE BLOOD COUNT 11.1 10^3/ul (4.8-10.8)
[2018-10-18 06:08] LABS: BASOPHIL # 0.1 10^3/ul (0.0-0.1); BASOPHILS % 0.7 % (0.0-2.0); EOSINOPHILS # 0.8 10^3/ul (0.0-0.5); EOSINOPHILS % 7.3 % (0.0-7.0); HEMATOCRIT 31.5 % (37.0-47.0); HEMOGLOBIN 9.6 g/dl (12.0-16.0); LYMPHOCYTES # 1.3 10^3/ul (0.8-2.9); LYMPHOCYTES % 11.3 % (15.0-51.0); MEAN CORPUSCULAR HEMOGLOBIN 25.7 pg (29.0-33.0); MEAN CORPUSCULAR HGB CONC 30.5 g/dl (32.0-37.0); MEAN CORPUSCULAR VOLUME 84.5 fl (82.0-101.0); MEAN PLATELET VOLUME 8.8 fl (7.4-10.4); MONOCYTE # 0.9 10^3/ul (0.3-0.9); MONOCYTES % 7.9 % (0.0-11.0); NEUTROPHIL # 7.9 10^3/ul (1.6-7.5); NEUTROPHILS % 71.7 % (39.0-77.0); PLATELET COUNT 377 10^3/UL (140-415); RED BLOOD COUNT 3.73 10^6/ul (4.20-5.40); RED CELL DISTRIBUTION WIDTH 17.1 % (11.5-14.5)
[2018-10-18 06:59] LABS: ALANINE AMINOTRANSFERASE 31 IU/L (13-69); ALBUMIN/GLOBULIN RATIO 0.88; ALKALINE PHOSPHATASE 66 IU/L (42-121); ANION GAP 7 (5-13); ASPARTATE AMINO TRANSFERASE 55 IU/L (15-46); BILIRUBIN,INDIRECT 0.3 mg/dl (0-1.1); BILIRUBIN,TOTAL 0.3 mg/dl (0.2-1.3); BLOOD UREA NITROGEN 23 mg/dl (7-20); CALCIUM 9.1 mg/dl (8.4-10.2); CARBON DIOXIDE 31 mmol/L (21-31); CHLORIDE 102 mmol/L (97-110); CREATININE 0.91 mg/dl (0.44-1.00); GLUCOSE 97 mg/dl (70-220); SODIUM 140 mmol/L (135-144); TOTAL PROTEIN 6.4 g/dl (6.1-8.1)
[2018-10-18 07:02] LABS: T4 (THYROXINE) 7.3 ug/dl (5.5-11.0)
[2018-10-18 07:41] LABS: PREALBUMIN 17.3 mg/dl (17.6-36.0)
[2018-10-18] MEDS: FUROSEMIDE 40 MG INJ IV (08:44)
[2018-10-18] MEDS: FERROUS SULFATE (EC) 325 MG TAB PO ×3 (08:44→21:56)
[2018-10-18] MEDS: GABAPENTIN 100 MG CAP PO ×3 (08:44→21:56)
[2018-10-18] MEDS: CARBIDOPA/LEVODOPA (25/100) TAB PO ×3 (08:44→21:56)
[2018-10-18] MEDS: BENAZEPRIL 40 MG TAB PO (08:44)
[2018-10-18] MEDS: CLOPIDOGREL 75 MG TAB PO (08:45)
[2018-10-18] MEDS: DOCUSATE SODIUM 100 MG CAP PO ×2 (08:45→21:56)
[2018-10-18] MEDS: ASPIRIN (EC) 81 MG TAB PO (08:45)
[2018-10-18] MEDS: MUPIROCIN 2% 22 GM OINT TOP ×2 (08:46→21:57)
[2018-10-18] MEDS: NA PHOSPHATE/BIPHOS 133 ML ENEMA PR (13:07)
[2018-10-18] MEDS: GABAPENTIN 300 MG CAP PO (21:56)
[2018-10-18] MEDS: DIPHENHYDRAMINE 25 MG CAP PO (21:56)
[2018-10-19 05:15] LABS: ADD MAN DIFF? NO
[2018-10-19 05:20] LABS: BASOPHIL # 0.1 10^3/ul (0.0-0.1); BASOPHILS % 0.7 % (0.0-2.0); EOSINOPHILS # 0.8 10^3/ul (0.0-0.5); HEMATOCRIT 30.2 % (37.0-47.0); HEMOGLOBIN 9.4 g/dl (12.0-16.0); LYMPHOCYTES # 1.3 10^3/ul (0.8-2.9); MEAN CORPUSCULAR HEMOGLOBIN 26.2 pg (29.0-33.0); MEAN CORPUSCULAR HGB CONC 31.1 g/dl (32.0-37.0); MEAN CORPUSCULAR VOLUME 84.1 fl (82.0-101.0); MEAN PLATELET VOLUME 8.7 fl (7.4-10.4); MONOCYTE # 0.9 10^3/ul (0.3-0.9); MONOCYTES % 8.5 % (0.0-11.0); NEUTROPHIL # 7.6 10^3/ul (1.6-7.5); NEUTROPHILS % 70.4 % (39.0-77.0); PLATELET COUNT 391 10^3/UL (140-415); RED BLOOD COUNT 3.59 10^6/ul (4.20-5.40); RED CELL DISTRIBUTION WIDTH 17.1 % (11.5-14.5)
[2018-10-19 05:20] LABS: WHITE BLOOD COUNT 10.8 10^3/ul (4.8-10.8)
[2018-10-19] MEDS: LEVOTHYROXINE 50 MCG TAB PO (05:50)
[2018-10-19] MEDS: PANTOPRAZOLE (EC) 40 MG TAB PO ×2 (05:50→18:28)
[2018-10-19 06:16] LABS: ANION GAP 6 (5-13); BLOOD UREA NITROGEN 26 mg/dl (7-20); CALCIUM 9.1 mg/dl (8.4-10.2); CARBON DIOXIDE 32 mmol/L (21-31); CHLORIDE 100 mmol/L (97-110); CREATININE 1.12 mg/dl (0.44-1.00); GLUCOSE 102 mg/dl (70-220); POTASSIUM 3.5 mmol/L (3.5-5.1); SODIUM 138 mmol/L (135-144)
[2018-10-19] MEDS: FUROSEMIDE 40 MG INJ IV (08:52)
[2018-10-19] MEDS: BENAZEPRIL 40 MG TAB PO (08:52)
[2018-10-19] MEDS: CARBIDOPA/LEVODOPA (25/100) TAB PO ×3 (08:52→21:20)
[2018-10-19] MEDS: GABAPENTIN 100 MG CAP PO ×3 (08:52→21:20)
[2018-10-19] MEDS: FERROUS SULFATE (EC) 325 MG TAB PO ×3 (08:53→21:20)
[2018-10-19] MEDS: CLOPIDOGREL 75 MG TAB PO (08:53)
[2018-10-19] MEDS: ASPIRIN (EC) 81 MG TAB PO (08:53)
[2018-10-19] MEDS: DOCUSATE SODIUM 100 MG CAP PO ×2 (08:53→21:20)
[2018-10-19] MEDS: MUPIROCIN 2% 22 GM OINT TOP ×2 (09:03→21:20)
[2018-10-19] MEDS: traMADol 50 MG TAB PO (10:56)
[2018-10-19] MEDS: GABAPENTIN 300 MG CAP PO (21:20)
[2018-10-19] MEDS: DIPHENHYDRAMINE 25 MG CAP PO (21:20)
[2018-10-20 05:52] LABS: ADD MAN DIFF? NO
[2018-10-20] MEDS: LEVOTHYROXINE 50 MCG TAB PO (06:05)
[2018-10-20] MEDS: PANTOPRAZOLE (EC) 40 MG TAB PO ×2 (06:05→18:49)
[2018-10-20 06:06] LABS: WHITE BLOOD COUNT 11.9 10^3/ul (4.8-10.8)
[2018-10-20 06:06] LABS: BASOPHIL # 0.1 10^3/ul (0.0-0.1); BASOPHILS % 0.8 % (0.0-2.0); EOSINOPHILS # 0.8 10^3/ul (0.0-0.5); EOSINOPHILS % 6.6 % (0.0-7.0); HEMATOCRIT 34.4 % (37.0-47.0); HEMOGLOBIN 10.5 g/dl (12.0-16.0); LYMPHOCYTES # 1.5 10^3/ul (0.8-2.9); LYMPHOCYTES % 12.8 % (15.0-51.0); MEAN CORPUSCULAR HGB CONC 30.5 g/dl (32.0-37.0); MEAN CORPUSCULAR VOLUME 85.1 fl (82.0-101.0); MEAN PLATELET VOLUME 8.7 fl (7.4-10.4); MONOCYTE # 0.8 10^3/ul (0.3-0.9); MONOCYTES % 6.9 % (0.0-11.0); NEUTROPHIL # 8.4 10^3/ul (1.6-7.5); NEUTROPHILS % 71.1 % (39.0-77.0); PLATELET COUNT 444 10^3/UL (140-415); RED BLOOD COUNT 4.04 10^6/ul (4.20-5.40); RED CELL DISTRIBUTION WIDTH 17.4 % (11.5-14.5)
[2018-10-20 06:41] LABS: ALBUMIN 3.3 g/dl (3.3-4.9); ANION GAP 6 (5-13); BLOOD UREA NITROGEN 29 mg/dl (7-20); CALCIUM 9.3 mg/dl (8.4-10.2); CARBON DIOXIDE 33 mmol/L (21-31); CHLORIDE 102 mmol/L (97-110); CREATININE 1.09 mg/dl (0.44-1.00); GLUCOSE 99 mg/dl (70-220); SODIUM 141 mmol/L (135-144)
[2018-10-20] MEDS: GABAPENTIN 100 MG CAP PO ×3 (09:00→21:24)
[2018-10-20] MEDS: ASPIRIN (EC) 81 MG TAB PO (09:00)
[2018-10-20] MEDS: BENAZEPRIL 40 MG TAB PO (09:00)
[2018-10-20] MEDS: DOCUSATE SODIUM 100 MG CAP PO ×2 (09:00→21:23)
[2018-10-20] MEDS: CARBIDOPA/LEVODOPA (25/100) TAB PO ×3 (09:00→21:24)
[2018-10-20] MEDS: CLOPIDOGREL 75 MG TAB PO (09:00)
[2018-10-20] MEDS: FERROUS SULFATE (EC) 325 MG TAB PO ×3 (09:00→21:24)
[2018-10-20] MEDS: traMADol 50 MG TAB PO (09:01)
[2018-10-20] MEDS: MUPIROCIN 2% 22 GM OINT TOP ×2 (09:01→21:24)
[2018-10-20] MEDS: FUROSEMIDE 40 MG INJ IV ×2 (09:01→18:30)
[2018-10-20] MEDS: GABAPENTIN 300 MG CAP PO (21:24)
[2018-10-20] MEDS: DIPHENHYDRAMINE 25 MG CAP PO (21:24)
[2018-10-21] MEDS: LEVOTHYROXINE 50 MCG TAB PO (05:38)
[2018-10-21] MEDS: PANTOPRAZOLE (EC) 40 MG TAB PO ×2 (05:38→17:55)
[2018-10-21 06:39] LABS: ANION GAP 7 (5-13); BLOOD UREA NITROGEN 28 mg/dl (7-20); CALCIUM 8.8 mg/dl (8.4-10.2); CARBON DIOXIDE 31 mmol/L (21-31); CHLORIDE 101 mmol/L (97-110); CREATININE 1.08 mg/dl (0.44-1.00); GLUCOSE 98 mg/dl (70-220); POTASSIUM 4.1 mmol/L (3.5-5.1); SODIUM 139 mmol/L (135-144)
[2018-10-21] MEDS: GABAPENTIN 100 MG CAP PO ×3 (08:32→20:35)
[2018-10-21] MEDS: FERROUS SULFATE (EC) 325 MG TAB PO ×3 (08:32→20:34)
[2018-10-21] MEDS: ASPIRIN (EC) 81 MG TAB PO (08:32)
[2018-10-21] MEDS: CLOPIDOGREL 75 MG TAB PO (08:32)
[2018-10-21] MEDS: BENAZEPRIL 40 MG TAB PO (08:33)
[2018-10-21] MEDS: FUROSEMIDE 40 MG INJ IV (08:33)
[2018-10-21] MEDS: CARBIDOPA/LEVODOPA (25/100) TAB PO ×3 (08:33→20:35)
[2018-10-21] MEDS: DOCUSATE SODIUM 100 MG CAP PO ×2 (08:33→20:34)
[2018-10-21] MEDS: traMADol 50 MG TAB PO (08:34)
[2018-10-21] MEDS: MUPIROCIN 2% 22 GM OINT TOP ×2 (09:00→20:35)
[2018-10-21] MEDS: DIPHENHYDRAMINE 25 MG CAP PO (20:34)
[2018-10-21] MEDS: GABAPENTIN 300 MG CAP PO (20:35)
[2018-10-22] MEDS: LEVOTHYROXINE 50 MCG TAB PO (05:41)
[2018-10-22] MEDS: PANTOPRAZOLE (EC) 40 MG TAB PO ×2 (05:41→17:35)
[2018-10-22] MEDS: FUROSEMIDE 40 MG INJ IV (09:24)
[2018-10-22] MEDS: GABAPENTIN 100 MG CAP PO ×3 (09:25→21:53)
[2018-10-22] MEDS: BENAZEPRIL 40 MG TAB PO (09:25)
[2018-10-22] MEDS: CARBIDOPA/LEVODOPA (25/100) TAB PO ×3 (09:25→21:55)
[2018-10-22] MEDS: ASPIRIN (EC) 81 MG TAB PO (09:25)
[2018-10-22] MEDS: FERROUS SULFATE (EC) 325 MG TAB PO ×3 (09:25→21:53)
[2018-10-22] MEDS: DOCUSATE SODIUM 100 MG CAP PO ×2 (09:25→21:53)
[2018-10-22] MEDS: CLOPIDOGREL 75 MG TAB PO (09:25)
[2018-10-22] MEDS: traMADol 50 MG TAB PO (09:32)
[2018-10-22] MEDS: MUPIROCIN 2% 22 GM OINT TOP ×2 (09:33→21:55)
[2018-10-22] MEDS: DIPHENHYDRAMINE 25 MG CAP PO (21:53)
[2018-10-22] MEDS: GABAPENTIN 300 MG CAP PO (21:53)
[2018-10-23] MEDS: PANTOPRAZOLE (EC) 40 MG TAB PO ×2 (06:15→17:30)
[2018-10-23] MEDS: LEVOTHYROXINE 50 MCG TAB PO (06:15)
[2018-10-23] MEDS: FUROSEMIDE 40 MG INJ IV (10:16)
[2018-10-23] MEDS: DOCUSATE SODIUM 100 MG CAP PO ×2 (10:17→20:28)
[2018-10-23] MEDS: ASPIRIN (EC) 81 MG TAB PO (10:17)
[2018-10-23] MEDS: BENAZEPRIL 40 MG TAB PO (10:17)
[2018-10-23] MEDS: FERROUS SULFATE (EC) 325 MG TAB PO ×3 (10:17→20:28)
[2018-10-23] MEDS: CLOPIDOGREL 75 MG TAB PO (10:17)
[2018-10-23] MEDS: GABAPENTIN 100 MG CAP PO ×3 (10:17→20:28)
[2018-10-23] MEDS: CARBIDOPA/LEVODOPA (25/100) TAB PO ×3 (10:17→20:29)
[2018-10-23] MEDS: MUPIROCIN 2% 22 GM OINT TOP ×2 (10:19→20:29)
[2018-10-23] MEDS: GABAPENTIN 300 MG CAP PO (20:28)
[2018-10-23] MEDS: DIPHENHYDRAMINE 25 MG CAP PO (20:28)
[2018-10-24] MEDS: LEVOTHYROXINE 50 MCG TAB PO (05:24)
[2018-10-24] MEDS: PANTOPRAZOLE (EC) 40 MG TAB PO ×2 (05:24→17:53)
[2018-10-24] MEDS: CARBIDOPA/LEVODOPA (25/100) TAB PO ×3 (08:49→20:17)
[2018-10-24] MEDS: CLOPIDOGREL 75 MG TAB PO (08:50)
[2018-10-24] MEDS: FUROSEMIDE 40 MG INJ IV (08:50)
[2018-10-24] MEDS: BENAZEPRIL 40 MG TAB PO (08:50)
[2018-10-24] MEDS: ASPIRIN (EC) 81 MG TAB PO (08:50)
[2018-10-24] MEDS: FERROUS SULFATE (EC) 325 MG TAB PO ×3 (08:50→20:17)
[2018-10-24] MEDS: DOCUSATE SODIUM 100 MG CAP PO ×2 (08:50→20:17)
[2018-10-24] MEDS: GABAPENTIN 100 MG CAP PO ×3 (08:50→20:18)
[2018-10-24] MEDS: MUPIROCIN 2% 22 GM OINT TOP ×2 (08:51→20:18)
[2018-10-24] MEDS: DIPHENHYDRAMINE 25 MG CAP PO (20:17)
[2018-10-24] MEDS: GABAPENTIN 300 MG CAP PO (20:18)
[2018-10-25] MEDS: LEVOTHYROXINE 50 MCG TAB PO (05:49)
[2018-10-25] MEDS: PANTOPRAZOLE (EC) 40 MG TAB PO ×2 (05:49→17:21)
[2018-10-25] MEDS: ASPIRIN (EC) 81 MG TAB PO (08:24)
[2018-10-25] MEDS: GABAPENTIN 100 MG CAP PO ×3 (08:24→20:29)
[2018-10-25] MEDS: DOCUSATE SODIUM 100 MG CAP PO ×2 (08:24→20:29)
[2018-10-25] MEDS: CARBIDOPA/LEVODOPA (25/100) TAB PO ×3 (08:24→20:29)
[2018-10-25] MEDS: FERROUS SULFATE (EC) 325 MG TAB PO ×3 (08:24→20:29)
[2018-10-25] MEDS: CLOPIDOGREL 75 MG TAB PO (08:24)
[2018-10-25] MEDS: MUPIROCIN 2% 22 GM OINT TOP ×2 (08:25→20:30)
[2018-10-25] MEDS: BENAZEPRIL 40 MG TAB PO (08:25)
[2018-10-25] MEDS: FUROSEMIDE 40 MG INJ IV (08:25)
[2018-10-25] MEDS: GABAPENTIN 300 MG CAP PO (20:29)
[2018-10-25] MEDS: DIPHENHYDRAMINE 25 MG CAP PO (20:29)
[2018-10-26] MEDS: LEVOTHYROXINE 50 MCG TAB PO (05:45)
[2018-10-26] MEDS: PANTOPRAZOLE (EC) 40 MG TAB PO ×2 (05:45→17:38)
[2018-10-26 05:53] LABS: ADD MAN DIFF? NO
[2018-10-26 06:02] LABS: BASOPHIL # 0.2 10^3/ul (0.0-0.1); BASOPHILS % 2.2 % (0.0-2.0); EOSINOPHILS # 0.8 10^3/ul (0.0-0.5); HEMATOCRIT 34.8 % (37.0-47.0); HEMOGLOBIN 10.4 g/dl (12.0-16.0); LYMPHOCYTES # 1.7 10^3/ul (0.8-2.9); LYMPHOCYTES % 15.9 % (15.0-51.0); MEAN CORPUSCULAR HEMOGLOBIN 26.3 pg (29.0-33.0); MEAN CORPUSCULAR HGB CONC 29.9 g/dl (32.0-37.0); MEAN CORPUSCULAR VOLUME 87.9 fl (82.0-101.0); MEAN PLATELET VOLUME 8.8 fl (7.4-10.4); MONOCYTE # 0.9 10^3/ul (0.3-0.9); MONOCYTES % 8.3 % (0.0-11.0); NEUTROPHIL # 6.7 10^3/ul (1.6-7.5); NEUTROPHILS % 63.8 % (39.0-77.0); PLATELET COUNT 536 10^3/UL (140-415); RED BLOOD COUNT 3.96 10^6/ul (4.20-5.40); RED CELL DISTRIBUTION WIDTH 17.8 % (11.5-14.5)
[2018-10-26 06:02] LABS: WHITE BLOOD COUNT 10.5 10^3/ul (4.8-10.8)
[2018-10-26 06:33] LABS: ANION GAP 8 (5-13); BLOOD UREA NITROGEN 39 mg/dl (7-20); CALCIUM 9.5 mg/dl (8.4-10.2); CARBON DIOXIDE 29 mmol/L (21-31); CHLORIDE 105 mmol/L (97-110); CREATININE 1.17 mg/dl (0.44-1.00); GLUCOSE 93 mg/dl (70-220); POTASSIUM 4.5 mmol/L (3.5-5.1); SODIUM 142 mmol/L (135-144)
[2018-10-26] MEDS: CLOPIDOGREL 75 MG TAB PO (08:40)
[2018-10-26] MEDS: DOCUSATE SODIUM 100 MG CAP PO ×2 (08:41→20:20)
[2018-10-26] MEDS: FERROUS SULFATE (EC) 325 MG TAB PO ×3 (08:41→20:20)
[2018-10-26] MEDS: CARBIDOPA/LEVODOPA (25/100) TAB PO ×3 (08:41→20:20)
[2018-10-26] MEDS: GABAPENTIN 100 MG CAP PO ×3 (08:41→20:20)
[2018-10-26] MEDS: ASPIRIN (EC) 81 MG TAB PO (08:41)
[2018-10-26] MEDS: MUPIROCIN 2% 22 GM OINT TOP ×2 (08:42→20:20)
[2018-10-26] MEDS: FUROSEMIDE 40 MG INJ IV (08:42)
[2018-10-26] MEDS: BENAZEPRIL 40 MG TAB PO (08:42)
[2018-10-26] MEDS: DIPHENHYDRAMINE 25 MG CAP PO (20:20)
[2018-10-26] MEDS: GABAPENTIN 300 MG CAP PO (20:20)
[2018-10-27] MEDS: LEVOTHYROXINE 50 MCG TAB PO (05:51)
[2018-10-27] MEDS: PANTOPRAZOLE (EC) 40 MG TAB PO ×2 (05:51→17:18)
[2018-10-27] MEDS: CARBIDOPA/LEVODOPA (25/100) TAB PO ×3 (08:48→21:04)
[2018-10-27] MEDS: GABAPENTIN 100 MG CAP PO ×3 (08:48→21:04)
[2018-10-27] MEDS: ASPIRIN (EC) 81 MG TAB PO (08:48)
[2018-10-27] MEDS: FERROUS SULFATE (EC) 325 MG TAB PO ×3 (08:48→21:04)
[2018-10-27] MEDS: FUROSEMIDE 40 MG INJ IV (08:48)
[2018-10-27] MEDS: DOCUSATE SODIUM 100 MG CAP PO ×2 (08:49→21:04)
[2018-10-27] MEDS: CLOPIDOGREL 75 MG TAB PO (08:49)
[2018-10-27] MEDS: BENAZEPRIL 40 MG TAB PO (08:49)
[2018-10-27] MEDS: MUPIROCIN 2% 22 GM OINT TOP ×2 (09:00→21:00)
[2018-10-27] MEDS: METOPROLOL 25 MG TAB PO (11:00)
[2018-10-27] MEDS: GABAPENTIN 300 MG CAP PO (21:04)
[2018-10-27] MEDS: DIPHENHYDRAMINE 25 MG CAP PO (21:04)
[2018-10-28] MEDS: PANTOPRAZOLE (EC) 40 MG TAB PO ×2 (06:15→17:39)
[2018-10-28] MEDS: LEVOTHYROXINE 75 MCG TAB PO (06:15)
[2018-10-28 06:26] LABS: ADD MAN DIFF? NO
[2018-10-28 06:35] LABS: BASOPHIL # 0.2 10^3/ul (0.0-0.1); BASOPHILS % 1.7 % (0.0-2.0); EOSINOPHILS # 0.8 10^3/ul (0.0-0.5); EOSINOPHILS % 7.1 % (0.0-7.0); HEMATOCRIT 38.1 % (37.0-47.0); HEMOGLOBIN 11.1 g/dl (12.0-16.0); LYMPHOCYTES # 1.8 10^3/ul (0.8-2.9); LYMPHOCYTES % 16.7 % (15.0-51.0); MEAN CORPUSCULAR HEMOGLOBIN 25.8 pg (29.0-33.0); MEAN CORPUSCULAR HGB CONC 29.1 g/dl (32.0-37.0); MEAN CORPUSCULAR VOLUME 88.6 fl (82.0-101.0); MEAN PLATELET VOLUME 8.9 fl (7.4-10.4); MONOCYTE # 1.1 10^3/ul (0.3-0.9); MONOCYTES % 9.5 % (0.0-11.0); NEUTROPHILS % 63.4 % (39.0-77.0); PLATELET COUNT 547 10^3/UL (140-415); RED CELL DISTRIBUTION WIDTH 18.3 % (11.5-14.5)
[2018-10-28 06:55] LABS: ANION GAP 10 (5-13); BLOOD UREA NITROGEN 44 mg/dl (7-20); CALCIUM 9.7 mg/dl (8.4-10.2); CARBON DIOXIDE 28 mmol/L (21-31); CHLORIDE 102 mmol/L (97-110); CREATININE 1.23 mg/dl (0.44-1.00); GLUCOSE 86 mg/dl (70-220); POTASSIUM 5.2 mmol/L (3.5-5.1); SODIUM 140 mmol/L (135-144)
[2018-10-28] MEDS: MUPIROCIN 2% 22 GM OINT TOP ×2 (09:00→21:00)
[2018-10-28] MEDS: CARBIDOPA/LEVODOPA (25/100) TAB PO ×3 (09:15→21:50)
[2018-10-28] MEDS: DOCUSATE SODIUM 100 MG CAP PO ×2 (09:15→21:51)
[2018-10-28] MEDS: METOPROLOL 25 MG TAB PO (09:15)
[2018-10-28] MEDS: GABAPENTIN 100 MG CAP PO ×3 (09:15→21:50)
[2018-10-28] MEDS: CLOPIDOGREL 75 MG TAB PO (09:15)
[2018-10-28] MEDS: ASPIRIN (EC) 81 MG TAB PO (09:15)
[2018-10-28] MEDS: FERROUS SULFATE (EC) 325 MG TAB PO ×3 (09:15→21:50)
[2018-10-28] MEDS: BENAZEPRIL 40 MG TAB PO (09:15)
[2018-10-28] MEDS: FUROSEMIDE 40 MG TAB PO (09:19)
[2018-10-28] MEDS: GABAPENTIN 300 MG CAP PO (21:50)
[2018-10-28] MEDS: DIPHENHYDRAMINE 25 MG CAP PO (21:51)
[2018-10-29] MEDS: LEVOTHYROXINE 75 MCG TAB PO (05:19)
[2018-10-29] MEDS: PANTOPRAZOLE (EC) 40 MG TAB PO ×2 (05:19→17:26)
[2018-10-29] MEDS: MUPIROCIN 2% 22 GM OINT TOP ×2 (09:00→20:48)
[2018-10-29] MEDS: METOPROLOL 25 MG TAB PO (09:00)
[2018-10-29] MEDS: FUROSEMIDE 40 MG TAB PO (09:23)
[2018-10-29] MEDS: BENAZEPRIL 40 MG TAB PO (09:23)
[2018-10-29] MEDS: CLOPIDOGREL 75 MG TAB PO (09:23)
[2018-10-29] MEDS: GABAPENTIN 100 MG CAP PO ×3 (09:23→20:47)
[2018-10-29] MEDS: ASPIRIN (EC) 81 MG TAB PO (09:23)
[2018-10-29] MEDS: FERROUS SULFATE (EC) 325 MG TAB PO ×3 (09:23→20:47)
[2018-10-29] MEDS: DOCUSATE SODIUM 100 MG CAP PO ×2 (09:23→20:47)
[2018-10-29] MEDS: CARBIDOPA/LEVODOPA (25/100) TAB PO ×3 (09:23→20:47)
[2018-10-29] MEDS: GABAPENTIN 300 MG CAP PO (20:47)
[2018-10-29] MEDS: DIPHENHYDRAMINE 25 MG CAP PO (20:47)
[2018-10-30] MEDS: LEVOTHYROXINE 75 MCG TAB PO (06:12)
[2018-10-30] MEDS: PANTOPRAZOLE (EC) 40 MG TAB PO ×2 (06:12→17:50)
[2018-10-30 06:53] LABS: ADD MAN DIFF? NO
[2018-10-30 06:55] LABS: WHITE BLOOD COUNT 9.3 10^3/ul (4.8-10.8)
[2018-10-30 06:55] LABS: BASOPHIL # 0.2 10^3/ul (0.0-0.1); BASOPHILS % 1.6 % (0.0-2.0); EOSINOPHILS # 0.7 10^3/ul (0.0-0.5); EOSINOPHILS % 7.4 % (0.0-7.0); HEMOGLOBIN 9.9 g/dl (12.0-16.0); LYMPHOCYTES # 1.7 10^3/ul (0.8-2.9); LYMPHOCYTES % 18.7 % (15.0-51.0); MEAN CORPUSCULAR HEMOGLOBIN 26.5 pg (29.0-33.0); MEAN CORPUSCULAR VOLUME 88.2 fl (82.0-101.0); MEAN PLATELET VOLUME 9.4 fl (7.4-10.4); MONOCYTE # 0.8 10^3/ul (0.3-0.9); MONOCYTES % 9.1 % (0.0-11.0); NEUTROPHIL # 5.7 10^3/ul (1.6-7.5); NEUTROPHILS % 61.7 % (39.0-77.0); PLATELET COUNT 499 10^3/UL (140-415); RED BLOOD COUNT 3.74 10^6/ul (4.20-5.40); RED CELL DISTRIBUTION WIDTH 18.1 % (11.5-14.5)
[2018-10-30 07:22] LABS: ANION GAP 8 (5-13); BLOOD UREA NITROGEN 62 mg/dl (7-20); CALCIUM 9.1 mg/dl (8.4-10.2); CARBON DIOXIDE 26 mmol/L (21-31); CHLORIDE 102 mmol/L (97-110); CREATININE 1.61 mg/dl (0.44-1.00); GLUCOSE 97 mg/dl (70-220); MAGNESIUM 2.3 mg/dl (1.7-2.5); POTASSIUM 4.1 mmol/L (3.5-5.1); SODIUM 136 mmol/L (135-144)
[2018-10-30 08:05] LABS: ADD UMIC YES; UR ASCORBIC ACID NEGATIVE (NEGATIVE); UR BACTERIA MODERATE /HPF (NONE SEEN); UR BILIRUBIN (Dip) NEGATIVE (NEGATIVE); UR BLOOD (Dip) 1+ mg/dL (NEGATIVE); UR CLARITY CLOUDY (CLEAR); UR COLOR YELLOW (YELLOW); UR GLUCOSE (Dip) NEGATIVE (NEGATIVE); UR KETONES (Dip) NEGATIVE (NEGATIVE); UR LEUKOCYTE ESTERASE (Dip) 3+ Leu/ul (NEGATIVE); UR NITRITE (Dip) NEGATIVE (NEGATIVE); UR RBC 3 /HPF (0-5); UR RENAL EPITHELIAL CELL FEW /HPF (NONE SEEN); UR SPECIFIC GRAVITY (Dip) 1.011 (1.003-1.030); UR SQUAMOUS EPITHELIAL CELL MODERATE /HPF (FEW); UR TOTAL PROTEIN (Dip) NEGATIVE (NEGATIVE); UR UROBILINOGEN (Dip) NEGATIVE (NEGATIVE); UR WBC 100 /HPF (0-5)
[2018-10-30] MEDS: METOPROLOL 25 MG TAB PO (09:00)
[2018-10-30] MEDS: CLOPIDOGREL 75 MG TAB PO (09:37)
[2018-10-30] MEDS: DOCUSATE SODIUM 100 MG CAP PO ×2 (09:37→20:44)
[2018-10-30] MEDS: FERROUS SULFATE (EC) 325 MG TAB PO ×3 (09:38→20:44)
[2018-10-30] MEDS: ASPIRIN (EC) 81 MG TAB PO (09:38)
[2018-10-30] MEDS: GABAPENTIN 100 MG CAP PO ×3 (09:38→20:44)
[2018-10-30] MEDS: CARBIDOPA/LEVODOPA (25/100) TAB PO ×3 (09:38→20:44)
[2018-10-30] MEDS: FUROSEMIDE 40 MG TAB PO ×2 (09:39→17:50)
[2018-10-30] MEDS: BENAZEPRIL 40 MG TAB PO (09:40)
[2018-10-30] MEDS: MUPIROCIN 2% 22 GM OINT TOP ×2 (09:40→20:44)
[2018-10-30] MEDS: METOLAZONE 5 MG TAB PO (17:50)
[2018-10-30] MEDS: GABAPENTIN 300 MG CAP PO (20:44)
[2018-10-30] MEDS: DIPHENHYDRAMINE 25 MG CAP PO (20:44)
[2018-10-31] MEDS: LEVOTHYROXINE 75 MCG TAB PO (06:04)
[2018-10-31] MEDS: PANTOPRAZOLE (EC) 40 MG TAB PO ×2 (06:05→18:17)
[2018-10-31] MEDS: FUROSEMIDE 40 MG TAB PO (06:05)
[2018-10-31 06:06] LABS: ANION GAP 8 (5-13); BLOOD UREA NITROGEN 69 mg/dl (7-20); CALCIUM 9.4 mg/dl (8.4-10.2); CARBON DIOXIDE 27 mmol/L (21-31); CHLORIDE 102 mmol/L (97-110); CREATININE 1.71 mg/dl (0.44-1.00); GLUCOSE 94 mg/dl (70-220); POTASSIUM 4.3 mmol/L (3.5-5.1); SODIUM 137 mmol/L (135-144)
[2018-10-31] MEDS: CARBIDOPA/LEVODOPA (25/100) TAB PO ×3 (09:14→20:39)
[2018-10-31] MEDS: GABAPENTIN 100 MG CAP PO ×3 (09:14→20:40)
[2018-10-31] MEDS: FERROUS SULFATE (EC) 325 MG TAB PO ×3 (09:14→20:39)
[2018-10-31] MEDS: CLOPIDOGREL 75 MG TAB PO (09:14)
[2018-10-31] MEDS: DOCUSATE SODIUM 100 MG CAP PO ×2 (09:14→20:39)
[2018-10-31] MEDS: ASPIRIN (EC) 81 MG TAB PO (09:14)
[2018-10-31] MEDS: BENAZEPRIL 40 MG TAB PO (09:18)
[2018-10-31] MEDS: MUPIROCIN 2% 22 GM OINT TOP ×2 (09:19→20:40)
[2018-10-31] MEDS: METOPROLOL 25 MG TAB PO ×2 (09:19→20:40)
[2018-10-31] MEDS: SOD CHLORIDE 0.9% 500 ML IV (16:08)
[2018-10-31] MEDS: GABAPENTIN 300 MG CAP PO (20:39)
[2018-10-31] MEDS: DIPHENHYDRAMINE 25 MG CAP PO (20:39)
[2018-11-01 05:21] LABS: ADD MAN DIFF? NO
[2018-11-01 05:27] LABS: BASOPHIL # 0.1 10^3/ul (0.0-0.1); BASOPHILS % 1.2 % (0.0-2.0); EOSINOPHILS # 0.8 10^3/ul (0.0-0.5); EOSINOPHILS % 8.3 % (0.0-7.0); HEMATOCRIT 34.5 % (37.0-47.0); HEMOGLOBIN 10.4 g/dl (12.0-16.0); LYMPHOCYTES # 1.9 10^3/ul (0.8-2.9); LYMPHOCYTES % 21.2 % (15.0-51.0); MEAN CORPUSCULAR HEMOGLOBIN 26.3 pg (29.0-33.0); MEAN CORPUSCULAR HGB CONC 30.1 g/dl (32.0-37.0); MEAN CORPUSCULAR VOLUME 87.3 fl (82.0-101.0); MEAN PLATELET VOLUME 9.4 fl (7.4-10.4); MONOCYTE # 0.9 10^3/ul (0.3-0.9); MONOCYTES % 9.5 % (0.0-11.0); NEUTROPHIL # 5.3 10^3/ul (1.6-7.5); NEUTROPHILS % 58.6 % (39.0-77.0); PLATELET COUNT 461 10^3/UL (140-415); RED BLOOD COUNT 3.95 10^6/ul (4.20-5.40); RED CELL DISTRIBUTION WIDTH 17.8 % (11.5-14.5)
[2018-11-01] MEDS: PANTOPRAZOLE (EC) 40 MG TAB PO ×2 (05:36→18:06)
[2018-11-01] MEDS: LEVOTHYROXINE 75 MCG TAB PO (05:36)
[2018-11-01 05:47] LABS: ANION GAP 10 (5-13); BLOOD UREA NITROGEN 78 mg/dl (7-20); CALCIUM 9.6 mg/dl (8.4-10.2); CARBON DIOXIDE 25 mmol/L (21-31); CHLORIDE 101 mmol/L (97-110); CREATININE 1.84 mg/dl (0.44-1.00); GLUCOSE 99 mg/dl (70-220); POTASSIUM 4.1 mmol/L (3.5-5.1); SODIUM 136 mmol/L (135-144)
[2018-11-01] MEDS: FERROUS SULFATE (EC) 325 MG TAB PO ×3 (08:42→21:23)
[2018-11-01] MEDS: DOCUSATE SODIUM 100 MG CAP PO ×2 (08:42→21:22)
[2018-11-01] MEDS: CARBIDOPA/LEVODOPA (25/100) TAB PO ×3 (08:42→21:22)
[2018-11-01] MEDS: CLOPIDOGREL 75 MG TAB PO (08:42)
[2018-11-01] MEDS: MUPIROCIN 2% 22 GM OINT TOP ×2 (08:42→21:25)
[2018-11-01] MEDS: GABAPENTIN 100 MG CAP PO ×3 (08:42→21:22)
[2018-11-01] MEDS: ASPIRIN (EC) 81 MG TAB PO (08:42)
[2018-11-01] MEDS: METOPROLOL 25 MG TAB PO ×2 (08:43→21:23)
[2018-11-01] MEDS: FUROSEMIDE 40 MG INJ IV (18:07)
[2018-11-01] MEDS: GABAPENTIN 300 MG CAP PO (21:22)
[2018-11-01] MEDS: DIPHENHYDRAMINE 25 MG CAP PO (21:22)
[2018-11-02 05:45] LABS: HEMATOCRIT 34.1 % (37.0-47.0); HEMOGLOBIN 10.5 g/dl (12.0-16.0)
[2018-11-02 06:13] LABS: ANION GAP 10 (5-13); BLOOD UREA NITROGEN 87 mg/dl (7-20); CALCIUM 9.6 mg/dl (8.4-10.2); CARBON DIOXIDE 28 mmol/L (21-31); CHLORIDE 98 mmol/L (97-110); CREATININE 1.86 mg/dl (0.44-1.00); GLUCOSE 101 mg/dl (70-220); POTASSIUM 4.2 mmol/L (3.5-5.1); SODIUM 136 mmol/L (135-144)
[2018-11-02] MEDS: LEVOTHYROXINE 75 MCG TAB PO (06:14)
[2018-11-02] MEDS: PANTOPRAZOLE (EC) 40 MG TAB PO ×2 (06:14→17:44)
[2018-11-02] MEDS: METOPROLOL 25 MG TAB PO ×2 (09:00→21:43)
[2018-11-02] MEDS: CLOPIDOGREL 75 MG TAB PO (09:44)
[2018-11-02] MEDS: FERROUS SULFATE (EC) 325 MG TAB PO ×3 (09:44→21:44)
[2018-11-02] MEDS: GABAPENTIN 100 MG CAP PO ×3 (09:44→21:43)
[2018-11-02] MEDS: ASPIRIN (EC) 81 MG TAB PO (09:44)
[2018-11-02] MEDS: CARBIDOPA/LEVODOPA (25/100) TAB PO ×3 (09:44→21:44)
[2018-11-02] MEDS: DOCUSATE SODIUM 100 MG CAP PO ×2 (09:44→21:43)
[2018-11-02] MEDS: MUPIROCIN 2% 22 GM OINT TOP ×2 (09:48→21:44)
[2018-11-02] MEDS: GABAPENTIN 300 MG CAP PO (21:43)
[2018-11-02] MEDS: DIPHENHYDRAMINE 25 MG CAP PO (21:43)
[2018-11-03 02:47] LABS: POTASSIUM,URINE RANDOM 41.8 mmol/L (25-125)
[2018-11-03 02:48] LABS: SODIUM,URINE RANDOM 19 mmol/L (30-90)
[2018-11-03 03:08] LABS: ADD UMIC YES; UR ASCORBIC ACID NEGATIVE (NEGATIVE); UR BACTERIA MODERATE /HPF (NONE SEEN); UR BILIRUBIN (Dip) NEGATIVE (NEGATIVE); UR BLOOD (Dip) 1+ mg/dL (NEGATIVE); UR CLARITY TURBID (CLEAR); UR COLOR YELLOW (YELLOW); UR GLUCOSE (Dip) NEGATIVE (NEGATIVE); UR KETONES (Dip) NEGATIVE (NEGATIVE); UR LEUKOCYTE ESTERASE (Dip) 3+ Leu/ul (NEGATIVE); UR NITRITE (Dip) POSITIVE (NEGATIVE); UR RBC 4 /HPF (0-5); UR SPECIFIC GRAVITY (Dip) 1.009 (1.003-1.030); UR TOTAL PROTEIN (Dip) NEGATIVE (NEGATIVE); UR UROBILINOGEN (Dip) NEGATIVE (NEGATIVE); UR WBC > 182 /HPF (0-5)
[2018-11-03] MEDS: LEVOTHYROXINE 75 MCG TAB PO (05:18)
[2018-11-03] MEDS: PANTOPRAZOLE (EC) 40 MG TAB PO ×2 (05:18→17:32)
[2018-11-03 05:39] LABS: ANION GAP 8 (5-13); BLOOD UREA NITROGEN 97 mg/dl (7-20); CALCIUM 9.3 mg/dl (8.4-10.2); CARBON DIOXIDE 27 mmol/L (21-31); CHLORIDE 99 mmol/L (97-110); CREATININE 1.85 mg/dl (0.44-1.00); GLUCOSE 102 mg/dl (70-220); MAGNESIUM 2.4 mg/dl (1.7-2.5); PHOSPHORUS 4.9 mg/dl (2.5-4.9); POTASSIUM 4.4 mmol/L (3.5-5.1); SODIUM 134 mmol/L (135-144)
[2018-11-03] MEDS: METOPROLOL 25 MG TAB PO ×2 (09:00→20:47)
[2018-11-03] MEDS: ASPIRIN (EC) 81 MG TAB PO (09:05)
[2018-11-03] MEDS: CLOPIDOGREL 75 MG TAB PO (09:06)
[2018-11-03] MEDS: CARBIDOPA/LEVODOPA (25/100) TAB PO ×3 (09:06→20:46)
[2018-11-03] MEDS: DOCUSATE SODIUM 100 MG CAP PO ×2 (09:06→20:46)
[2018-11-03] MEDS: GABAPENTIN 100 MG CAP PO ×3 (09:06→20:46)
[2018-11-03] MEDS: FERROUS SULFATE (EC) 325 MG TAB PO ×3 (09:06→20:46)
[2018-11-03] MEDS: MUPIROCIN 2% 22 GM OINT TOP ×2 (09:06→20:47)
[2018-11-03] MEDS: SOD CHLORIDE 0.9% 1,000 ML IV (14:15)
[2018-11-03] MEDS: DIPHENHYDRAMINE 25 MG CAP PO (20:46)
[2018-11-03] MEDS: GABAPENTIN 300 MG CAP PO (20:46)
[2018-11-04] MEDS: PANTOPRAZOLE (EC) 40 MG TAB PO ×2 (05:35→17:36)
[2018-11-04] MEDS: LEVOTHYROXINE 75 MCG TAB PO (05:35)
[2018-11-04 06:04] LABS: ADD MAN DIFF? NO
[2018-11-04 06:14] LABS: WHITE BLOOD COUNT 6.9 10^3/ul (4.8-10.8)
[2018-11-04 06:14] LABS: BASOPHIL # 0.1 10^3/ul (0.0-0.1); BASOPHILS % 1.3 % (0.0-2.0); EOSINOPHILS # 0.7 10^3/ul (0.0-0.5); EOSINOPHILS % 10.3 % (0.0-7.0); HEMATOCRIT 29.8 % (37.0-47.0); LYMPHOCYTES # 1.5 10^3/ul (0.8-2.9); LYMPHOCYTES % 21.1 % (15.0-51.0); MEAN CORPUSCULAR HEMOGLOBIN 26.4 pg (29.0-33.0); MEAN CORPUSCULAR HGB CONC 30.2 g/dl (32.0-37.0); MEAN CORPUSCULAR VOLUME 87.4 fl (82.0-101.0); MEAN PLATELET VOLUME 9.7 fl (7.4-10.4); MONOCYTE # 0.7 10^3/ul (0.3-0.9); MONOCYTES % 10.5 % (0.0-11.0); NEUTROPHIL # 3.9 10^3/ul (1.6-7.5); NEUTROPHILS % 56.2 % (39.0-77.0); PLATELET COUNT 341 10^3/UL (140-415); RED BLOOD COUNT 3.41 10^6/ul (4.20-5.40); RED CELL DISTRIBUTION WIDTH 18.2 % (11.5-14.5)
[2018-11-04 06:29] LABS: MAGNESIUM 2.4 mg/dl (1.7-2.5)
[2018-11-04 06:29] LABS: PHOSPHORUS 3.9 mg/dl (2.5-4.9)
[2018-11-04 06:33] LABS: ANION GAP 6 (5-13); BLOOD UREA NITROGEN 70 mg/dl (7-20); CALCIUM 8.6 mg/dl (8.4-10.2); CARBON DIOXIDE 26 mmol/L (21-31); CHLORIDE 108 mmol/L (97-110); CREATININE 1.11 mg/dl (0.44-1.00); GLUCOSE 93 mg/dl (70-220); POTASSIUM 3.7 mmol/L (3.5-5.1); SODIUM 140 mmol/L (135-144)
[2018-11-04] MEDS: METOPROLOL 25 MG TAB PO ×2 (09:00→21:03)
[2018-11-04] MEDS: MUPIROCIN 2% 22 GM OINT TOP ×3 (09:00→21:00)
[2018-11-04] MEDS: DOCUSATE SODIUM 100 MG CAP PO ×2 (09:02→21:03)
[2018-11-04] MEDS: GABAPENTIN 100 MG CAP PO ×3 (09:02→21:01)
[2018-11-04] MEDS: ASPIRIN (EC) 81 MG TAB PO (09:02)
[2018-11-04] MEDS: CARBIDOPA/LEVODOPA (25/100) TAB PO ×3 (09:02→18:41)
[2018-11-04] MEDS: CLOPIDOGREL 75 MG TAB PO (09:02)
[2018-11-04] MEDS: FERROUS SULFATE (EC) 325 MG TAB PO ×3 (09:02→21:03)
[2018-11-04] MEDS: GABAPENTIN 300 MG CAP PO (21:03)
[2018-11-04] MEDS: DIPHENHYDRAMINE 25 MG CAP PO (21:03)
[2018-11-05] MEDS: traMADol 50 MG TAB PO (01:32)
[2018-11-05] MEDS: LEVOTHYROXINE 75 MCG TAB PO (05:50)
[2018-11-05] MEDS: PANTOPRAZOLE (EC) 40 MG TAB PO (05:50)
[2018-11-05] MEDS ORDERED: CARBIDOPA/LEVODOPA (25/100) TAB PO (08:00)
[2018-11-05] MEDS: METOPROLOL 25 MG TAB PO (09:00)
[2018-11-05] MEDS: ASPIRIN (EC) 81 MG TAB PO (09:17)
[2018-11-05] MEDS: CARBIDOPA/LEVODOPA (25/100) TAB PO ×2 (09:17→12:53)
[2018-11-05] MEDS: GABAPENTIN 100 MG CAP PO ×2 (09:17→12:53)
[2018-11-05] MEDS: FERROUS SULFATE (EC) 325 MG TAB PO ×2 (09:17→12:53)
[2018-11-05] MEDS: DOCUSATE SODIUM 100 MG CAP PO (09:17)
[2018-11-05] MEDS: CLOPIDOGREL 75 MG TAB PO (09:17)
[2018-11-05] MEDS: MUPIROCIN 2% 22 GM OINT TOP (09:21)
[2018-11-05] MEDS: NITROFURANTOIN (SR) 100 MG CAP PO (15:12)
== END 2018-11-05 18:25 | DRG 253 ==
LOC: REC 06:14 → 6WM 10-10 18:22 → 2NE 10-26 21:28 → ICU 18:28
PROC: 041K09L Bypass Right Femoral Artery to Popliteal Artery with Autologous Venous Tissue, Open Approach (ICD-10-PCS; principal; 2018-10-09 08:00)
PROC: 30233N1 Transfusion of Nonautologous Red Blood Cells into Peripheral Vein, Percutaneous Approach (ICD-10-PCS; 2018-10-09 08:19)
DX: E11.51 Type 2 diabetes mellitus with diabetic peripheral angiopathy without gangrene (principal); D62 Acute posthemorrhagic anemia; L97.219 Non-pressure chronic ulcer of right calf with unspecified severity; L03.115 Cellulitis of right lower limb; B69.0 Cysticercosis of central nervous system; N17.9 Acute kidney failure, unspecified; N39.0 Urinary tract infection, site not specified; E11.622 Type 2 diabetes mellitus with other skin ulcer; D63.1 Anemia in chronic kidney disease; E03.9 Hypothyroidism, unspecified; E87.70 Fluid overload, unspecified; E11.42 Type 2 diabetes mellitus with diabetic polyneuropathy; E11.22 Type 2 diabetes mellitus with diabetic chronic kidney disease; F41.9 Anxiety disorder, unspecified; F32.9 Major depressive disorder, single episode, unspecified; F02.80 Dementia in other diseases classified elsewhere, unspecified severity, without behavioral disturbance, psychotic disturbance, mood disturbance, and anxiety; G20 Parkinson's disease; I12.9 Hypertensive chronic kidney disease with stage 1 through stage 4 chronic kidney disease, or unspecified chronic kidney disease; I87.2 Venous insufficiency (chronic) (peripheral); I87.8 Other specified disorders of veins; K21.9 Gastro-esophageal reflux disease without esophagitis; K44.9 Diaphragmatic hernia without obstruction or gangrene; N18.2 Chronic kidney disease, stage 2 (mild); R41.82 Altered mental status, unspecified; R03.1 Nonspecific low blood-pressure reading; R26.9 Unspecified abnormalities of gait and mobility; R54 Age-related physical debility
CPT/HCPCS: 36430; 70470; 71045; 74230; 76775; 80048; 80053; 81001; 81003; 82040; 83540; 83735; 83880; 84100; 84133; 84134; 84300; 84436; 84443; 85014; 85018; 85025; 86850; 86900; 86901; 86920; 87086; 92523; 92526; 92610; 92611; 93880; 93971; 97110; 97116; 97163; 97530

== ENCOUNTER 2018-11-05 18:45 | Inpatient (IN) | payer OTHER ==
[2018-11-05] MEDS ORDERED: GABAPENTIN 100 MG CAP PO (21:00)
[2018-11-05] MEDS ORDERED: CARBIDOPA/LEVODOPA (25/100) TAB PO (21:00)
[2018-11-05] MEDS ORDERED: NA PHOSPHATE/BIPHOS 133 ML ENEMA PR (21:00)
[2018-11-05] MEDS ORDERED: ACETAMINOPHEN 325 MG TAB PO (21:00)
[2018-11-05] MEDS: GABAPENTIN 300 MG CAP PO (22:17)
[2018-11-05] MEDS: DOCUSATE SODIUM 100 MG CAP PO (22:17)
[2018-11-05] MEDS: FERROUS SULFATE (EC) 325 MG TAB PO (22:17)
[2018-11-05] MEDS: DIPHENHYDRAMINE 25 MG CAP PO (22:17)
[2018-11-05] MEDS: NITROFURANTOIN (SR) 100 MG CAP PO (22:18)
[2018-11-05] MEDS: MUPIROCIN 2% 22 GM OINT TOP (22:18)
[2018-11-05] MEDS: METOPROLOL 25 MG TAB PO (22:25)
[2018-11-05 23:18] LABS: ADD UMIC YES; UR ASCORBIC ACID NEGATIVE (NEGATIVE); UR BACTERIA FEW /HPF (NONE SEEN); UR BILIRUBIN (Dip) NEGATIVE (NEGATIVE); UR BLOOD (Dip) 2+ mg/dL (NEGATIVE); UR CLARITY CLOUDY (CLEAR); UR COLOR YELLOW (YELLOW); UR GLUCOSE (Dip) NEGATIVE (NEGATIVE); UR KETONES (Dip) NEGATIVE (NEGATIVE); UR LEUKOCYTE ESTERASE (Dip) 3+ Leu/ul (NEGATIVE); UR NITRITE (Dip) POSITIVE (NEGATIVE); UR RBC 12 /HPF (0-5); UR SPECIFIC GRAVITY (Dip) 1.011 (1.003-1.030); UR SQUAMOUS EPITHELIAL CELL FEW /HPF (FEW); UR TOTAL PROTEIN (Dip) 1+ mg/dl (NEGATIVE); UR UROBILINOGEN (Dip) NEGATIVE (NEGATIVE); UR WBC > 182 /HPF (0-5)
[2018-11-06] MEDS: PANTOPRAZOLE (EC) 40 MG TAB PO ×2 (06:41→17:41)
[2018-11-06] MEDS: LEVOTHYROXINE 75 MCG TAB PO (06:42)
[2018-11-06 07:55] LABS: ADD MAN DIFF? NO
[2018-11-06 08:08] LABS: BASOPHIL # 0.1 10^3/ul (0.0-0.1); BASOPHILS % 0.5 % (0.0-2.0); EOSINOPHILS # 0.6 10^3/ul (0.0-0.5); EOSINOPHILS % 4.8 % (0.0-7.0); HEMATOCRIT 32.4 % (37.0-47.0); LYMPHOCYTES # 1.3 10^3/ul (0.8-2.9); LYMPHOCYTES % 9.7 % (15.0-51.0); MEAN CORPUSCULAR HGB CONC 30.9 g/dl (32.0-37.0); MEAN CORPUSCULAR VOLUME 87.3 fl (82.0-101.0); MEAN PLATELET VOLUME 10.3 fl (7.4-10.4); MONOCYTE # 1.4 10^3/ul (0.3-0.9); MONOCYTES % 10.2 % (0.0-11.0); NEUTROPHIL # 9.8 10^3/ul (1.6-7.5); NEUTROPHILS % 74.4 % (39.0-77.0); PLATELET COUNT 323 10^3/UL (140-415); RED BLOOD COUNT 3.71 10^6/ul (4.20-5.40); RED CELL DISTRIBUTION WIDTH 18.3 % (11.5-14.5)
[2018-11-06 08:08] LABS: WHITE BLOOD COUNT 13.2 10^3/ul (4.8-10.8)
[2018-11-06 08:22] LABS: ALANINE AMINOTRANSFERASE 17 IU/L (13-69); ALBUMIN 3.6 g/dl (3.3-4.9); ALBUMIN/GLOBULIN RATIO 0.97; ALKALINE PHOSPHATASE 66 IU/L (42-121); ANION GAP 8 (5-13); ASPARTATE AMINO TRANSFERASE 16 IU/L (15-46); BILIRUBIN,INDIRECT 0.4 mg/dl (0-1.1); BILIRUBIN,TOTAL 0.4 mg/dl (0.2-1.3); BLOOD UREA NITROGEN 39 mg/dl (7-20); CALCIUM 9.6 mg/dl (8.4-10.2); CARBON DIOXIDE 27 mmol/L (21-31); CHLORIDE 104 mmol/L (97-110); GLUCOSE 107 mg/dl (70-220); POTASSIUM 4.1 mmol/L (3.5-5.1); SODIUM 139 mmol/L (135-144); TOTAL PROTEIN 7.3 g/dl (6.1-8.1)
[2018-11-06] MEDS: ASPIRIN (EC) 81 MG TAB PO (08:31)
[2018-11-06] MEDS: NITROFURANTOIN (SR) 100 MG CAP PO ×2 (08:31→21:08)
[2018-11-06] MEDS: CARBIDOPA/LEVODOPA (25/100) TAB PO ×3 (08:31→17:41)
[2018-11-06] MEDS: ASCORBIC ACID 250 MG TAB PO (08:32)
[2018-11-06] MEDS: FERROUS SULFATE (EC) 325 MG TAB PO ×3 (08:32→21:08)
[2018-11-06] MEDS: MULTIVITAMINS THERAPEUTIC TAB PO (08:32)
[2018-11-06] MEDS: GABAPENTIN 100 MG CAP PO ×3 (08:32→17:43)
[2018-11-06] MEDS: CLOPIDOGREL 75 MG TAB PO (08:32)
[2018-11-06] MEDS: MUPIROCIN 2% 22 GM OINT TOP ×2 (08:32→21:11)
[2018-11-06] MEDS: traMADol 50 MG TAB PO (08:40)
[2018-11-06] MEDS: DOCUSATE SODIUM 100 MG CAP PO ×2 (08:40→21:08)
[2018-11-06] MEDS: METOPROLOL 25 MG TAB PO ×3 (09:00→21:00)
[2018-11-06] MEDS: GABAPENTIN 300 MG CAP PO (21:08)
[2018-11-06] MEDS: DIPHENHYDRAMINE 25 MG CAP PO (21:08)
[2018-11-07] MEDS: PANTOPRAZOLE (EC) 40 MG TAB PO ×2 (06:49→17:37)
[2018-11-07] MEDS: LEVOTHYROXINE 75 MCG TAB PO (06:49)
[2018-11-07 08:35] LABS: ADD MAN DIFF? NO
[2018-11-07 08:46] LABS: BASOPHIL # 0.1 10^3/ul (0.0-0.1); BASOPHILS % 0.7 % (0.0-2.0); EOSINOPHILS # 0.8 10^3/ul (0.0-0.5); EOSINOPHILS % 6.1 % (0.0-7.0); HEMATOCRIT 32.8 % (37.0-47.0); HEMOGLOBIN 10.1 g/dl (12.0-16.0); LYMPHOCYTES % 7.1 % (15.0-51.0); MEAN CORPUSCULAR HEMOGLOBIN 26.5 pg (29.0-33.0); MEAN CORPUSCULAR HGB CONC 30.8 g/dl (32.0-37.0); MEAN CORPUSCULAR VOLUME 86.1 fl (82.0-101.0); MEAN PLATELET VOLUME 10.3 fl (7.4-10.4); MONOCYTE # 1.3 10^3/ul (0.3-0.9); MONOCYTES % 9.5 % (0.0-11.0); NEUTROPHIL # 10.2 10^3/ul (1.6-7.5); PLATELET COUNT 318 10^3/UL (140-415); RED BLOOD COUNT 3.81 10^6/ul (4.20-5.40); RED CELL DISTRIBUTION WIDTH 18.2 % (11.5-14.5)
[2018-11-07 08:46] LABS: WHITE BLOOD COUNT 13.4 10^3/ul (4.8-10.8)
[2018-11-07 09:01] LABS: ANION GAP 8 (5-13); BLOOD UREA NITROGEN 31 mg/dl (7-20); CALCIUM 9.7 mg/dl (8.4-10.2); CARBON DIOXIDE 27 mmol/L (21-31); CHLORIDE 101 mmol/L (97-110); GLUCOSE 95 mg/dl (70-220); POTASSIUM 4.1 mmol/L (3.5-5.1); SODIUM 136 mmol/L (135-144)
[2018-11-07 09:14] LABS: FREE T4 (FREE THYROXINE) 1.26 ng/dl (0.85-1.93)
[2018-11-07] MEDS: METOPROLOL 25 MG TAB PO ×2 (09:22→20:54)
[2018-11-07] MEDS: MULTIVITAMINS THERAPEUTIC TAB PO (09:23)
[2018-11-07] MEDS: NITROFURANTOIN (SR) 100 MG CAP PO ×2 (09:23→20:50)
[2018-11-07] MEDS: DOCUSATE SODIUM 100 MG CAP PO ×2 (09:23→20:51)
[2018-11-07] MEDS: CLOPIDOGREL 75 MG TAB PO (09:23)
[2018-11-07] MEDS: ASCORBIC ACID 250 MG TAB PO (09:23)
[2018-11-07] MEDS: ASPIRIN (EC) 81 MG TAB PO (09:23)
[2018-11-07] MEDS: GABAPENTIN 100 MG CAP PO ×3 (09:23→17:37)
[2018-11-07] MEDS: FERROUS SULFATE (EC) 325 MG TAB PO ×3 (09:24→20:51)
[2018-11-07] MEDS: CARBIDOPA/LEVODOPA (25/100) TAB PO ×3 (09:24→17:37)
[2018-11-07] MEDS: MUPIROCIN 2% 22 GM OINT TOP ×2 (09:25→20:59)
[2018-11-07] MEDS: DIPHENHYDRAMINE 25 MG CAP PO (20:51)
[2018-11-07] MEDS: GABAPENTIN 300 MG CAP PO (20:51)
[2018-11-08] MEDS: LEVOTHYROXINE 75 MCG TAB PO (06:34)
[2018-11-08] MEDS: PANTOPRAZOLE (EC) 40 MG TAB PO ×2 (06:34→17:51)
[2018-11-08] MEDS: CARBIDOPA/LEVODOPA (25/100) TAB PO ×3 (09:27→17:51)
[2018-11-08] MEDS: NITROFURANTOIN (SR) 100 MG CAP PO ×2 (09:27→21:23)
[2018-11-08] MEDS: ASPIRIN (EC) 81 MG TAB PO (09:28)
[2018-11-08] MEDS: CLOPIDOGREL 75 MG TAB PO (09:28)
[2018-11-08] MEDS: METOPROLOL 25 MG TAB PO ×2 (09:28→21:24)
[2018-11-08] MEDS: DOCUSATE SODIUM 100 MG CAP PO ×2 (09:28→21:23)
[2018-11-08] MEDS: ASCORBIC ACID 250 MG TAB PO (09:28)
[2018-11-08] MEDS: GABAPENTIN 100 MG CAP PO ×3 (09:28→17:51)
[2018-11-08] MEDS: FERROUS SULFATE (EC) 325 MG TAB PO ×3 (09:28→21:23)
[2018-11-08] MEDS: MULTIVITAMINS THERAPEUTIC TAB PO (09:28)
[2018-11-08] MEDS: MUPIROCIN 2% 22 GM OINT TOP ×2 (09:29→21:25)
[2018-11-08 12:22] LABS: ADD MAN DIFF? NO
[2018-11-08 12:30] LABS: WHITE BLOOD COUNT 10.3 10^3/ul (4.8-10.8)
[2018-11-08 12:30] LABS: BASOPHIL # 0.1 10^3/ul (0.0-0.1); BASOPHILS % 0.8 % (0.0-2.0); EOSINOPHILS # 0.8 10^3/ul (0.0-0.5); EOSINOPHILS % 7.8 % (0.0-7.0); HEMOGLOBIN 10.7 g/dl (12.0-16.0); LYMPHOCYTES # 0.8 10^3/ul (0.8-2.9); LYMPHOCYTES % 7.8 % (15.0-51.0); MEAN CORPUSCULAR HEMOGLOBIN 26.8 pg (29.0-33.0); MEAN CORPUSCULAR HGB CONC 30.6 g/dl (32.0-37.0); MEAN CORPUSCULAR VOLUME 87.5 fl (82.0-101.0); MEAN PLATELET VOLUME 10.2 fl (7.4-10.4); MONOCYTE # 1.2 10^3/ul (0.3-0.9); MONOCYTES % 11.2 % (0.0-11.0); NEUTROPHIL # 7.4 10^3/ul (1.6-7.5); NEUTROPHILS % 71.6 % (39.0-77.0); PLATELET COUNT 305 10^3/UL (140-415); RED CELL DISTRIBUTION WIDTH 18.2 % (11.5-14.5)
[2018-11-08] MEDS: DIPHENHYDRAMINE 25 MG CAP PO (21:23)
[2018-11-08] MEDS: GABAPENTIN 300 MG CAP PO (21:23)
[2018-11-09] MEDS: PANTOPRAZOLE (EC) 40 MG TAB PO ×2 (06:04→17:31)
[2018-11-09] MEDS: LEVOTHYROXINE 75 MCG TAB PO (06:04)
[2018-11-09] MEDS: CARBIDOPA/LEVODOPA (25/100) TAB PO ×3 (07:47→17:31)
[2018-11-09] MEDS: METOPROLOL 25 MG TAB PO ×2 (09:00→22:01)
[2018-11-09] MEDS: MULTIVITAMINS THERAPEUTIC TAB PO (09:32)
[2018-11-09] MEDS: DOCUSATE SODIUM 100 MG CAP PO ×2 (09:32→21:53)
[2018-11-09] MEDS: ASPIRIN (EC) 81 MG TAB PO (09:32)
[2018-11-09] MEDS: CLOPIDOGREL 75 MG TAB PO (09:32)
[2018-11-09] MEDS: ASCORBIC ACID 250 MG TAB PO (09:32)
[2018-11-09] MEDS: FERROUS SULFATE (EC) 325 MG TAB PO ×3 (09:32→21:53)
[2018-11-09] MEDS: NITROFURANTOIN (SR) 100 MG CAP PO ×2 (09:32→21:53)
[2018-11-09] MEDS: MUPIROCIN 2% 22 GM OINT TOP (09:33)
[2018-11-09] MEDS: GABAPENTIN 100 MG CAP PO ×3 (09:38→17:31)
[2018-11-09] MEDS: DIPHENHYDRAMINE 25 MG CAP PO (21:53)
[2018-11-09] MEDS: GABAPENTIN 300 MG CAP PO (21:53)
[2018-11-10] MEDS: PANTOPRAZOLE (EC) 40 MG TAB PO ×2 (06:40→17:19)
[2018-11-10] MEDS: LEVOTHYROXINE 75 MCG TAB PO (06:40)
[2018-11-10] MEDS: CARBIDOPA/LEVODOPA (25/100) TAB PO ×3 (08:50→17:19)
[2018-11-10] MEDS: GABAPENTIN 100 MG CAP PO ×3 (09:01→17:20)
[2018-11-10] MEDS: DOCUSATE SODIUM 100 MG CAP PO ×2 (09:02→20:43)
[2018-11-10] MEDS: CLOPIDOGREL 75 MG TAB PO (09:03)
[2018-11-10] MEDS: ASPIRIN (EC) 81 MG TAB PO (09:03)
[2018-11-10] MEDS: ASCORBIC ACID 250 MG TAB PO (09:05)
[2018-11-10] MEDS: MULTIVITAMINS THERAPEUTIC TAB PO (09:05)
[2018-11-10] MEDS: NITROFURANTOIN (SR) 100 MG CAP PO ×2 (09:07→20:43)
[2018-11-10] MEDS: FERROUS SULFATE (EC) 325 MG TAB PO ×3 (09:07→20:45)
[2018-11-10] MEDS: METOPROLOL 25 MG TAB PO ×2 (09:08→20:46)
[2018-11-10] MEDS: DIPHENHYDRAMINE 25 MG CAP PO (20:43)
[2018-11-10] MEDS: GABAPENTIN 300 MG CAP PO (20:45)
[2018-11-11] MEDS: LEVOTHYROXINE 75 MCG TAB PO (06:58)
[2018-11-11] MEDS: PANTOPRAZOLE (EC) 40 MG TAB PO ×2 (06:58→17:16)
[2018-11-11 07:26] LABS: ADD MAN DIFF? NO
[2018-11-11 07:34] LABS: WHITE BLOOD COUNT 10.2 10^3/ul (4.8-10.8)
[2018-11-11 07:34] LABS: BASOPHIL # 0.1 10^3/ul (0.0-0.1); BASOPHILS % 0.9 % (0.0-2.0); HEMATOCRIT 34.2 % (37.0-47.0); HEMOGLOBIN 10.4 g/dl (12.0-16.0); LYMPHOCYTES # 1.3 10^3/ul (0.8-2.9); LYMPHOCYTES % 12.4 % (15.0-51.0); MEAN CORPUSCULAR HEMOGLOBIN 26.8 pg (29.0-33.0); MEAN CORPUSCULAR HGB CONC 30.4 g/dl (32.0-37.0); MEAN CORPUSCULAR VOLUME 88.1 fl (82.0-101.0); MEAN PLATELET VOLUME 9.9 fl (7.4-10.4); MONOCYTES % 9.5 % (0.0-11.0); NEUTROPHIL # 6.8 10^3/ul (1.6-7.5); NEUTROPHILS % 66.5 % (39.0-77.0); PLATELET COUNT 292 10^3/UL (140-415); RED BLOOD COUNT 3.88 10^6/ul (4.20-5.40)
[2018-11-11 08:03] LABS: ANION GAP 9 (5-13); BLOOD UREA NITROGEN 35 mg/dl (7-20); CALCIUM 9.7 mg/dl (8.4-10.2); CARBON DIOXIDE 26 mmol/L (21-31); CHLORIDE 105 mmol/L (97-110); CREATININE 1.11 mg/dl (0.44-1.00); GLUCOSE 97 mg/dl (70-220); POTASSIUM 4.4 mmol/L (3.5-5.1); SODIUM 140 mmol/L (135-144)
[2018-11-11] MEDS: NITROFURANTOIN (SR) 100 MG CAP PO ×2 (08:49→21:01)
[2018-11-11] MEDS: ASPIRIN (EC) 81 MG TAB PO (08:50)
[2018-11-11] MEDS: FERROUS SULFATE (EC) 325 MG TAB PO ×3 (08:50→21:01)
[2018-11-11] MEDS: DOCUSATE SODIUM 100 MG CAP PO ×2 (08:50→21:00)
[2018-11-11] MEDS: CLOPIDOGREL 75 MG TAB PO (08:50)
[2018-11-11] MEDS: MULTIVITAMINS THERAPEUTIC TAB PO (08:50)
[2018-11-11] MEDS: CARBIDOPA/LEVODOPA (25/100) TAB PO ×3 (08:50→17:16)
[2018-11-11] MEDS: ASCORBIC ACID 250 MG TAB PO (08:50)
[2018-11-11] MEDS: METOPROLOL 25 MG TAB PO ×2 (08:51→21:01)
[2018-11-11] MEDS: GABAPENTIN 100 MG CAP PO ×3 (08:58→17:16)
[2018-11-11] MEDS: DIPHENHYDRAMINE 25 MG CAP PO (21:00)
[2018-11-11] MEDS: GABAPENTIN 300 MG CAP PO (21:01)
[2018-11-12] MEDS: LEVOTHYROXINE 75 MCG TAB PO (06:26)
[2018-11-12] MEDS: PANTOPRAZOLE (EC) 40 MG TAB PO ×2 (06:27→17:28)
[2018-11-12] MEDS: DOCUSATE SODIUM 100 MG CAP PO ×2 (09:00→21:12)
[2018-11-12] MEDS: MULTIVITAMINS THERAPEUTIC TAB PO (09:01)
[2018-11-12] MEDS: NITROFURANTOIN (SR) 100 MG CAP PO ×2 (09:01→21:11)
[2018-11-12] MEDS: CARBIDOPA/LEVODOPA (25/100) TAB PO ×3 (09:01→17:28)
[2018-11-12] MEDS: CLOPIDOGREL 75 MG TAB PO (09:01)
[2018-11-12] MEDS: METOPROLOL 25 MG TAB PO ×2 (09:02→21:00)
[2018-11-12] MEDS: FERROUS SULFATE (EC) 325 MG TAB PO ×3 (09:02→21:11)
[2018-11-12] MEDS: ASCORBIC ACID 250 MG TAB PO (09:02)
[2018-11-12] MEDS: ASPIRIN (EC) 81 MG TAB PO (09:03)
[2018-11-12] MEDS: GABAPENTIN 100 MG CAP PO ×3 (09:18→17:28)
[2018-11-12] MEDS ORDERED: PANTOPRAZOLE (EC) 40 MG TAB PO (12:30)
[2018-11-12] MEDS: DIPHENHYDRAMINE 25 MG CAP PO (21:11)
[2018-11-12] MEDS: GABAPENTIN 300 MG CAP PO (21:12)
[2018-11-13] MEDS ORDERED: PANTOPRAZOLE (EC) 40 MG TAB PO (06:00)
[2018-11-13] MEDS: LEVOTHYROXINE 75 MCG TAB PO (06:16)
[2018-11-13] MEDS: PANTOPRAZOLE (EC) 40 MG TAB PO ×2 (06:16→18:55)
[2018-11-13] MEDS: CARBIDOPA/LEVODOPA (25/100) TAB PO ×3 (08:26→18:55)
[2018-11-13] MEDS: ASCORBIC ACID 250 MG TAB PO (08:26)
[2018-11-13] MEDS: ASPIRIN (EC) 81 MG TAB PO (08:26)
[2018-11-13] MEDS: FERROUS SULFATE (EC) 325 MG TAB PO ×3 (08:26→21:29)
[2018-11-13] MEDS: CLOPIDOGREL 75 MG TAB PO (08:26)
[2018-11-13] MEDS: GABAPENTIN 100 MG CAP PO ×3 (08:27→18:55)
[2018-11-13] MEDS: DOCUSATE SODIUM 100 MG CAP PO ×2 (08:27→21:29)
[2018-11-13] MEDS: MULTIVITAMINS THERAPEUTIC TAB PO (08:27)
[2018-11-13] MEDS: NITROFURANTOIN (SR) 100 MG CAP PO (08:34)
[2018-11-13] MEDS: METOPROLOL 25 MG TAB PO ×2 (08:36→21:00)
[2018-11-13] MEDS: DIPHENHYDRAMINE 25 MG CAP PO (21:29)
[2018-11-13] MEDS: GABAPENTIN 300 MG CAP PO (21:29)
[2018-11-14] MEDS: LEVOTHYROXINE 75 MCG TAB PO (06:26)
[2018-11-14] MEDS: PANTOPRAZOLE (EC) 40 MG TAB PO ×2 (06:26→17:38)
[2018-11-14 08:11] LABS: ANION GAP 7 (5-13); BLOOD UREA NITROGEN 32 mg/dl (7-20); CALCIUM 9.7 mg/dl (8.4-10.2); CARBON DIOXIDE 28 mmol/L (21-31); CHLORIDE 105 mmol/L (97-110); CREATININE 1.06 mg/dl (0.44-1.00); GLUCOSE 95 mg/dl (70-220); POTASSIUM 3.8 mmol/L (3.5-5.1); SODIUM 140 mmol/L (135-144)
[2018-11-14] MEDS: CARBIDOPA/LEVODOPA (25/100) TAB PO ×3 (08:38→17:38)
[2018-11-14] MEDS: GABAPENTIN 100 MG CAP PO ×3 (08:38→17:38)
[2018-11-14] MEDS: ASPIRIN (EC) 81 MG TAB PO (08:39)
[2018-11-14] MEDS: FERROUS SULFATE (EC) 325 MG TAB PO ×3 (08:39→20:15)
[2018-11-14] MEDS: CLOPIDOGREL 75 MG TAB PO (08:39)
[2018-11-14] MEDS: DOCUSATE SODIUM 100 MG CAP PO ×2 (08:39→20:15)
[2018-11-14] MEDS: MULTIVITAMINS THERAPEUTIC TAB PO (08:39)
[2018-11-14] MEDS: ASCORBIC ACID 250 MG TAB PO (08:40)
[2018-11-14] MEDS: METOPROLOL 25 MG TAB PO ×2 (08:40→20:15)
[2018-11-14] MEDS: DIPHENHYDRAMINE 25 MG CAP PO (20:15)
[2018-11-14] MEDS: GABAPENTIN 300 MG CAP PO (20:15)
[2018-11-14] MEDS: PROMETHAZINE/DM (CUP) PO (20:47)
[2018-11-15] MEDS: LEVOTHYROXINE 75 MCG TAB PO (06:17)
[2018-11-15] MEDS: PANTOPRAZOLE (EC) 40 MG TAB PO ×2 (06:17→17:21)
[2018-11-15 06:57] LABS: ANION GAP 6 (5-13); BLOOD UREA NITROGEN 33 mg/dl (7-20); CALCIUM 9.3 mg/dl (8.4-10.2); CARBON DIOXIDE 28 mmol/L (21-31); CHLORIDE 106 mmol/L (97-110); CREATININE 1.03 mg/dl (0.44-1.00); GLUCOSE 98 mg/dl (70-220); POTASSIUM 4.2 mmol/L (3.5-5.1); SODIUM 140 mmol/L (135-144)
[2018-11-15 07:04] LABS: B-TYPE NATRIURETIC PEPTIDE 791 PG/ML (0-450)
[2018-11-15 07:19] LABS: ADD UMIC YES; UR ASCORBIC ACID 20 mg/dL (NEGATIVE); UR BILIRUBIN (Dip) NEGATIVE (NEGATIVE); UR BLOOD (Dip) NEGATIVE (NEGATIVE); UR CLARITY CLEAR (CLEAR); UR COLOR STRAW (YELLOW); UR GLUCOSE (Dip) NEGATIVE (NEGATIVE); UR KETONES (Dip) NEGATIVE (NEGATIVE); UR LEUKOCYTE ESTERASE (Dip) 1+ Leu/ul (NEGATIVE); UR NITRITE (Dip) NEGATIVE (NEGATIVE); UR RBC 0 /HPF (0-5); UR SPECIFIC GRAVITY (Dip) 1.009 (1.003-1.030); UR SQUAMOUS EPITHELIAL CELL FEW /HPF (FEW); UR TOTAL PROTEIN (Dip) NEGATIVE (NEGATIVE); UR UROBILINOGEN (Dip) NEGATIVE (NEGATIVE); UR WBC 11 /HPF (0-5)
[2018-11-15] MEDS: ASPIRIN (EC) 81 MG TAB PO (08:53)
[2018-11-15] MEDS: CARBIDOPA/LEVODOPA (25/100) TAB PO ×3 (08:53→17:22)
[2018-11-15] MEDS: MULTIVITAMINS THERAPEUTIC TAB PO (08:53)
[2018-11-15] MEDS: DOCUSATE SODIUM 100 MG CAP PO ×2 (08:53→20:54)
[2018-11-15] MEDS: FERROUS SULFATE (EC) 325 MG TAB PO ×3 (08:53→20:54)
[2018-11-15] MEDS: ASCORBIC ACID 250 MG TAB PO (08:53)
[2018-11-15] MEDS: CLOPIDOGREL 75 MG TAB PO (08:53)
[2018-11-15] MEDS: METOPROLOL 25 MG TAB PO ×2 (08:54→20:55)
[2018-11-15] MEDS: GABAPENTIN 100 MG CAP PO ×3 (08:56→17:21)
[2018-11-15] MEDS: DIPHENHYDRAMINE 25 MG CAP PO (20:54)
[2018-11-15] MEDS: GABAPENTIN 300 MG CAP PO (20:54)
[2018-11-16] MEDS: PANTOPRAZOLE (EC) 40 MG TAB PO ×2 (06:17→17:42)
[2018-11-16] MEDS: LEVOTHYROXINE 75 MCG TAB PO (06:17)
[2018-11-16] MEDS: FERROUS SULFATE (EC) 325 MG TAB PO ×3 (08:41→20:46)
[2018-11-16] MEDS: ASCORBIC ACID 250 MG TAB PO (08:41)
[2018-11-16] MEDS: CARBIDOPA/LEVODOPA (25/100) TAB PO ×3 (08:41→17:42)
[2018-11-16] MEDS: GABAPENTIN 100 MG CAP PO ×3 (08:41→17:42)
[2018-11-16] MEDS: DOCUSATE SODIUM 100 MG CAP PO ×2 (08:41→20:45)
[2018-11-16] MEDS: ASPIRIN (EC) 81 MG TAB PO (08:41)
[2018-11-16] MEDS: CLOPIDOGREL 75 MG TAB PO (08:41)
[2018-11-16] MEDS: MULTIVITAMINS THERAPEUTIC TAB PO (08:41)
[2018-11-16] MEDS: METOPROLOL 25 MG TAB PO ×2 (08:42→20:50)
[2018-11-16] MEDS: DIPHENHYDRAMINE 25 MG CAP PO (20:45)
[2018-11-16] MEDS: GABAPENTIN 300 MG CAP PO (20:52)
[2018-11-17] MEDS: LEVOTHYROXINE 75 MCG TAB PO (06:07)
[2018-11-17] MEDS: PANTOPRAZOLE (EC) 40 MG TAB PO ×2 (06:07→17:46)
[2018-11-17] MEDS: DOCUSATE SODIUM 100 MG CAP PO ×2 (09:10→20:29)
[2018-11-17] MEDS: MULTIVITAMINS THERAPEUTIC TAB PO (09:10)
[2018-11-17] MEDS: CARBIDOPA/LEVODOPA (25/100) TAB PO ×3 (09:10→17:42)
[2018-11-17] MEDS: FERROUS SULFATE (EC) 325 MG TAB PO ×3 (09:10→20:29)
[2018-11-17] MEDS: CLOPIDOGREL 75 MG TAB PO (09:11)
[2018-11-17] MEDS: ASCORBIC ACID 250 MG TAB PO (09:11)
[2018-11-17] MEDS: METOPROLOL 25 MG TAB PO ×2 (09:11→20:28)
[2018-11-17] MEDS: ASPIRIN (EC) 81 MG TAB PO (09:11)
[2018-11-17] MEDS: GABAPENTIN 100 MG CAP PO ×3 (09:43→17:42)
[2018-11-17] MEDS: GABAPENTIN 300 MG CAP PO (20:28)
[2018-11-17] MEDS: DIPHENHYDRAMINE 25 MG CAP PO (20:28)
[2018-11-18] MEDS: PANTOPRAZOLE (EC) 40 MG TAB PO ×2 (06:16→17:22)
[2018-11-18] MEDS: LEVOTHYROXINE 75 MCG TAB PO (06:16)
[2018-11-18] MEDS: CARBIDOPA/LEVODOPA (25/100) TAB PO ×3 (08:04→17:22)
[2018-11-18] MEDS: CLOPIDOGREL 75 MG TAB PO (08:26)
[2018-11-18] MEDS: ASCORBIC ACID 250 MG TAB PO (08:26)
[2018-11-18] MEDS: DOCUSATE SODIUM 100 MG CAP PO ×2 (08:26→21:13)
[2018-11-18] MEDS: FERROUS SULFATE (EC) 325 MG TAB PO ×3 (08:27→21:13)
[2018-11-18] MEDS: ASPIRIN (EC) 81 MG TAB PO (08:27)
[2018-11-18] MEDS: METOPROLOL 25 MG TAB PO ×2 (08:28→21:00)
[2018-11-18] MEDS: MULTIVITAMINS THERAPEUTIC TAB PO (08:29)
[2018-11-18] MEDS: GABAPENTIN 100 MG CAP PO ×3 (08:31→17:22)
[2018-11-18] MEDS: GABAPENTIN 300 MG CAP PO (21:12)
[2018-11-18] MEDS: DIPHENHYDRAMINE 25 MG CAP PO (21:12)
[2018-11-19] MEDS: LEVOTHYROXINE 75 MCG TAB PO (06:12)
[2018-11-19] MEDS: PANTOPRAZOLE (EC) 40 MG TAB PO ×2 (06:12→17:14)
[2018-11-19] MEDS: METOPROLOL 25 MG TAB PO ×2 (08:09→20:12)
[2018-11-19] MEDS: CLOPIDOGREL 75 MG TAB PO (08:10)
[2018-11-19] MEDS: DOCUSATE SODIUM 100 MG CAP PO ×2 (08:11→20:12)
[2018-11-19] MEDS: FERROUS SULFATE (EC) 325 MG TAB PO ×3 (08:11→20:11)
[2018-11-19] MEDS: GABAPENTIN 100 MG CAP PO ×3 (08:11→17:14)
[2018-11-19] MEDS: ASCORBIC ACID 250 MG TAB PO (08:12)
[2018-11-19] MEDS: ASPIRIN (EC) 81 MG TAB PO (08:12)
[2018-11-19] MEDS: CARBIDOPA/LEVODOPA (25/100) TAB PO ×3 (08:12→17:14)
[2018-11-19] MEDS: MULTIVITAMINS THERAPEUTIC TAB PO (08:12)
[2018-11-19] MEDS: GABAPENTIN 300 MG CAP PO (20:12)
[2018-11-19] MEDS: BETAMETHASONE 0.05% 15 GM OINT TOP (20:20)
[2018-11-19] MEDS: DIPHENHYDRAMINE 25 MG CAP PO (21:00)
[2018-11-20] MEDS: LEVOTHYROXINE 75 MCG TAB PO (06:51)
[2018-11-20] MEDS: PANTOPRAZOLE (EC) 40 MG TAB PO ×2 (06:51→17:59)
[2018-11-20 07:44] LABS: ANION GAP 3 (5-13); BLOOD UREA NITROGEN 33 mg/dl (7-20); CALCIUM 9.4 mg/dl (8.4-10.2); CARBON DIOXIDE 28 mmol/L (21-31); CHLORIDE 109 mmol/L (97-110); CREATININE 0.97 mg/dl (0.44-1.00); GLUCOSE 94 mg/dl (70-220); POTASSIUM 4.1 mmol/L (3.5-5.1); SODIUM 140 mmol/L (135-144)
[2018-11-20] MEDS: BETAMETHASONE 0.05% 15 GM OINT TOP ×2 (08:11→20:25)
[2018-11-20] MEDS: MULTIVITAMINS THERAPEUTIC TAB PO (08:16)
[2018-11-20] MEDS: FERROUS SULFATE (EC) 325 MG TAB PO ×3 (08:16→20:25)
[2018-11-20] MEDS: ASPIRIN (EC) 81 MG TAB PO (08:17)
[2018-11-20] MEDS: CLOPIDOGREL 75 MG TAB PO (08:17)
[2018-11-20] MEDS: DOCUSATE SODIUM 100 MG CAP PO ×2 (08:17→20:25)
[2018-11-20] MEDS: ASCORBIC ACID 250 MG TAB PO (08:17)
[2018-11-20] MEDS: GABAPENTIN 100 MG CAP PO ×3 (08:17→17:59)
[2018-11-20] MEDS: CARBIDOPA/LEVODOPA (25/100) TAB PO ×3 (08:17→17:59)
[2018-11-20] MEDS: METOPROLOL 25 MG TAB PO ×2 (09:56→20:25)
[2018-11-20] MEDS: GABAPENTIN 300 MG CAP PO (20:25)
[2018-11-20] MEDS: DIPHENHYDRAMINE 25 MG CAP PO (20:25)
[2018-11-21] MEDS: LEVOTHYROXINE 75 MCG TAB PO (06:48)
[2018-11-21] MEDS: PANTOPRAZOLE (EC) 40 MG TAB PO (06:49)
[2018-11-21] MEDS: CLOPIDOGREL 75 MG TAB PO (08:09)
[2018-11-21] MEDS: BETAMETHASONE 0.05% 15 GM OINT TOP (08:09)
[2018-11-21] MEDS: DOCUSATE SODIUM 100 MG CAP PO (08:09)
[2018-11-21] MEDS: ASPIRIN (EC) 81 MG TAB PO (08:09)
[2018-11-21] MEDS: ASCORBIC ACID 250 MG TAB PO (08:09)
[2018-11-21] MEDS: MULTIVITAMINS THERAPEUTIC TAB PO (08:09)
[2018-11-21] MEDS: FERROUS SULFATE (EC) 325 MG TAB PO ×2 (08:09→12:01)
[2018-11-21] MEDS: GABAPENTIN 100 MG CAP PO ×2 (08:10→12:01)
[2018-11-21] MEDS: CARBIDOPA/LEVODOPA (25/100) TAB PO ×2 (08:10→11:56)
[2018-11-21] MEDS: METOPROLOL 25 MG TAB PO (08:11)
[2018-11-21] MEDS ORDERED: LACTULOSE 30ML CUP PO (12:00)
== END 2018-11-21 16:55 | disposition home health service (06) | DRG 57 ==
LOC: VRC 11-13 23:25
DX: G20 Parkinson's disease (principal); N39.0 Urinary tract infection, site not specified; I83.018 Varicose veins of right lower extremity with ulcer other part of lower leg; I12.9 Hypertensive chronic kidney disease with stage 1 through stage 4 chronic kidney disease, or unspecified chronic kidney disease; N18.9 Chronic kidney disease, unspecified; D64.9 Anemia, unspecified; I73.9 Peripheral vascular disease, unspecified; R13.11 Dysphagia, oral phase; F41.9 Anxiety disorder, unspecified; G62.9 Polyneuropathy, unspecified; Z74.09 Other reduced mobility; E03.9 Hypothyroidism, unspecified; K21.9 Gastro-esophageal reflux disease without esophagitis; Z95.828 Presence of other vascular implants and grafts; B96.20 Unspecified Escherichia coli [E. coli] as the cause of diseases classified elsewhere; F06.31 Mood disorder due to known physiological condition with depressive features; F06.8 Other specified mental disorders due to known physiological condition; R13.19 Other dysphagia
CPT/HCPCS: 71045; 80048; 80053; 81001; 83735; 83880; 84439; 85025; 87081; 87086; 92507; 92523; 92526; 92610; 97110; 97112; 97116; 97163; 97530; 97535; 97542